=== PATIENT | female | born 1945 | race Caucasian/White ===

== ENCOUNTER 2022-02-27 21:28 | Emergency (ER) | payer MEDICARE ==
--- NOTE | 2022-02-27 21:32 | ERPHSYRPT ---
- History of Present Illness Time Seen by Provider: 02/27/22 21:32 Historian: patient Exam Limitations: no limitations Physician History: This is a 76 y/o white female pt of dr. hernandez who presents with cp. it is central substernal pressure and nonradiating. she has associated sbp over 200 and a headache. pt states she is on several medications for high bp and she has taken them all for today. she has also felt a few palpitations today. pt is under a lot of stress she states. pts grain inspector is dr. castellanos and she has a pain specialist, dr. arita. she is not sob. she denies n/v/d. she does not have abd pain. Timing/Duration: today Quality: pressure Chest Pain Radiation: no radiation Severity of Pain-Max: moderate Severity of Pain-Current: mild Associated Symptoms: denies symptoms, No abdominal pain, No shortness of breath Nitro Today/Relief: no nitro taken today Aspirin Treatment Today: no aspirin today, provided by ED Allergies/Adverse Reactions: shellfish derived Allergy (Intermediate, Verified 02/28/22 00:32) Hives Sulfa (Sulfonamide Antibiotics) Allergy (Intermediate, Verified 02/27/22 22:16) Hives Home Medications: Amlodipine Besylate 5 mg [Norvasc 5 mg] 5 mg PO BID 02/27/22 [History] Chlorthalidone 25 mg PO DAILY 02/27/22 [History] HydrALAzine HCL 25 MG TAB [Apresoline 25 MG TABLET] 25 mg PO TID 02/27/22 [History] Lisinopril 20 mg [Zestril 20 MG] 40 mg PO DAILY 02/27/22 [History] Metoprolol Succinate 50 mg [Toprol Xl 50 MG] 50 mg PO BID 02/27/22 [Hist ory] Zolpidem Tartrate 10 mg [Ambien 10 MG] 10 mg PO HS 02/27/22 [History] Travel Risk - International Travel Have you traveled outside of the country in past 3 weeks: No - Coronavirus Screening Are you exhibiting any of the following symptoms?: No Close contact with a COVID-19 positive Pt in past 14-21 Days: No - Review of Systems Constitutional: No Symptoms Eyes: No Symptoms Ears, Nose, & Throat: No Symptoms Respiratory: No Symptoms Cardiac: Chest Pain, Palpitations Abdominal/Gastrointestinal: No Symptoms Genitourinary Symptoms: No Symptoms Musculoskeletal: No Symptoms Skin: No Symptoms Neurological: Headache Psychological: No Symptoms Endocrine: No Symptoms Hematologic/Lymphatic: No Symptoms Immunological/Allergic: No Symptoms All Other Systems: Reviewed and Negative - Past Medical History Pertinent Past Medical History: Yes - Past Surgical History Past Surgical History: Yes - Nursing Vital Signs Nursing Vital Signs: Initial Vital Signs Temperature 98.5 F 02/27/22 21:30 Pulse Rate 109 H 02/27/22 21:30 Respiratory Rate 18 02/27/22 21:30 Blood Pressure 208/89 02/27/22 21:30 O2 Sat by Pulse Oximetry 96 02/27/22 21:30 Pain Scale Pain Intensity 0 - Physical Exam General Appearance: no apparent distress, alert, anxiety Eye Exam: PERRL/EOMI, eyes nml inspection Ears, Nose, Throat Exam: normal ENT inspection, moist mucous membranes Neck Exam: normal inspection, non-tender, supple, full range of motion Respiratory Exam: normal breath sounds, chest tenderness, lungs clear, airway intact, No respiratory distress Cardiovascular Exam: tachycardia Gastrointestinal/Abdomen Exam: soft, normal bowel sounds, No tenderness Pelvic Exam: not done Rectal Exam: not done Extremity Exam: normal inspection, normal range of motion, pelvis stable Neurologic Exam: alert, oriented x 3, cooperative, certified tumor registrar II-XII nml as tested, normal mood/affect, nml cerebellar function, nml station & gait, sensation nml Skin Exam: normal color, warm, dry Lymphatic Exam: No adenopathy SpO2 Interpretation: normal O2 Delivery: Room Air - Course Nursing assessment & vital signs reviewed: Yes EKG Interpreted by Me: RATE ([id number]), Sinus Tach, NORMAL AXIS, NORMAL INTERVALS, NORMAL QRS, NORMAL ST-T, Other (no acute ischemia. no comparison ekg) Ordered Tests: Active Orders 24 hr Category Date Time Status Slab Installer STAT Care 02/27/22 22:01 Active EKG-ER Only STAT Care 02/27/22 22:01 Active IV Insertion STAT Care 02/27/22 22:01 Active Pulse Oximetry (ED) STAT Care 02/27/22 22:01 Active CHEST 1 VIEW (PORTABLE) Stat Exams 02/27/22 22:01 Taken HEAD WITHOUT CONTRAST [CT] Stat Exams 02/27/22 22:02 Taken CBC W DIFF Stat Lab 02/27/22 22:06 Completed CMP Stat Lab 02/27/22 22:06 Completed D-DIMER QUANTITATIVE Stat Lab 02/27/22 22:06 Completed NT PRO BNP Stat Lab 02/27/22 22:06 Completed TROPONIN Q3H Lab 02/27/22 22:06 Completed TROPONIN Q3H Lab 02/28/22 01:15 Ordered TROPONIN Q3H Lab 02/28/22 04:15 Ordered TROPONIN Q3H Lab 02/28/22 07:15 Ordered TROPONIN Q3H Lab 02/28/22 10:15 Ordered Medication Summary Discontinued Medications Generic Name Dose Route Start Last Admin Trade Name Freq PRN Reason Stop Dose Admin Sodium Chloride 500 mls @ 500 mls/hr 02/27/22 23:52 02/28/22 00:49 Sodium Chloride 0.9% 500 Ml IV 02/28/22 00:51 Not Given .Q1H ONE Lorazepam 1 mg 02/27/22 23:53 02/28/22 00:49 Lorazepam 2 Mg/1 Ml 2 Mg Vial IV 02/27/22 23:54 Not Given STAT ONE Metoprolol Tartrate 5 mg 02/27/22 22:01 02/27/22 22:21 Metoprolol Tartrate 5 Mg/5 Ml Injection IV 02/27/22 22:02 5 mg STAT ONE Administration Metoprolol Tartrate Confirm 02/27/22 22:11 Metoprolol Tartrate 5 Mg/5 Ml Injection Administered 02/27/22 22:12 Dose 5 mg IV .STK-MED ONE Morphine Sulfate 4 mg 02/27/22 22:02 02/27/22 22:17 Morphine Sulfate 4 Mg/Ml Injection IV 02/27/22 22:03 4 mg STAT ONE Administration Morphine Sulfate Confirm 02/27/22 22:12 Morphine Sulfate 4 Mg/Ml Injection Administered 02/27/22 22:13 Dose 4 mg .ROUTE .STK-MED ONE Ondansetron HCl 4 mg 02/27/22 22:01 02/27/22 22:15 Ondansetron Hcl 4 Mg/2 Ml Vial IV 02/27/22 22:02 4 mg STAT ONE Administration Ondansetron HCl 4 mg 02/27/22 22:02 02/27/22 22:17 Ondansetron Hcl 4 Mg/2 Ml Vial IV 02/27/22 22:03 Not Given STAT ONE Ondansetron HCl Confirm 02/27/22 22:11 Ondansetron Hcl 4 Mg/2 Ml Vial Administered 02/27/22 22:12 Dose 4 mg .ROUTE .STK-MED ONE Lab/Rad Data: Laboratory Result Diagrams 02/27/22 22:06 02/27/22 22:06 Laboratory Results 02/27/22 02/27/22 02/27/22 Range/Units 22:15 22:06 22:06 WBC (4.0-10.5) K/mm3 RBC (4.1-5.4) M/mm3 Hgb (12.0-16.0) gm/dl Hct (35-47) % MCV (78-100) fl MCH (26-32) pg MCHC (32-36) g/dl RDW (11.5-14.0) % Plt Count (150-450) K/mm3 MPV (7.5-11.0) fl Gran % (36.0-66.0) % Eos # (Auto) (0-0.5) Absolute Lymphs (auto) (1.0-4.6) Absolute Monos (auto) (0.0-1.3) Lymphocytes % (24.0-44.0) % Monocytes % (0.0-12.0) % Eosinophils % (0.00-5.0) % Basophils % (0.0-0.4) % Absolute Granulocytes (1.4-6.9) Basophils # (0-0.4) D-Dimer 638 H* (215-500) ng/mL Sodium (137-145) mmol/L Potassium (3.5-5.1) mmol/L Chloride (98-107) mmol/L Carbon Dioxide (22-30) mmol/L Anion Gap (5-15) MEQ/L BUN (7-17) mg/dL Creatinine (0.52-1.04) mg/dL Estimated GFR ML/MIN Glucose (74-106) mg/dL Calcium (8.4-10.2) mg/dL Total Bilirubin (0.2-1.3) mg/dL AST (14-36) U/L ALT (0-35) U/L Alkaline Phosphatase (38-126) U/L Troponin I < 0.012 (0.000-0.034) ng/mL NT-Pro-B Natriuret Pep (0-900) pg/mL Serum Total Protein (6.3-8.2) g/dL Albumin (3.5-5.0) g/dL Urinalys Dipstick Clnc MAIN LAB Urine Color YELLOW (YELLOW) Urine Appearance CLEAR (CLEAR) Urine pH 6.5 (5-6) Ur Specific [place] 1.020 (1.005-1.025) POC Urine Protein Conf NEGATIVE (Negative) Urine Ketones NEGATIVE (NEGATIVE) Urine Nitrite NEGATIVE (NEGATIVE) Urine Bilirubin NEGATIVE (NEGATIVE) Urine Urobilinogen 0.2 (0-1) mg/dL Urine Leukocytes NEGATIVE (NEGATIVE) Urine WBC (Auto) 0-2 (0-5) /HPF Urine RBC (Auto) NONE (0-2) /HPF U Epithel Cells (Auto) NONE (FEW) /HPF Urine Bacteria (Auto) NONE (NEGATIVE) /HPF Urine RBC NEGATIVE (0-5) Edmundo/ul Ur Culture Indicated? NO Urine Glucose 100 (NEGATIVE) mg/dL Slides for Path Review 02/27/22 02/27/22 Range/Units 22:06 22:06 WBC 12.2 H (4.0-10.5) K/mm3 RBC 4.69 (4.1-5.4) M/mm3 Hgb 13.3 (12.0-16.0) gm/dl Hct 40.6 (35-47) % MCV 86.6 (78-100) fl MCH 28.4 (26-32) pg MCHC 32.8 (32-36) g/dl RDW 15.0 H (11.5-14.0) % Plt Count 309 (150-450) K/mm3 MPV 10.3 (7.5-11.0) fl Gran % 37.6 (36.0-66.0) % Eos # (Auto) 0.30 (0-0.5) Absolute Lymphs (auto) 6.27 H (1.0-4.6) Absolute Monos (auto) 1.04 (0.0-1.3) Lymphocytes % 51.2 H (24.0-44.0) % Monocytes % 8.5 (0.0-12.0) % Eosinophils % 2.5 (0.00-5.0) % Basophils % 0.2 (0.0-0.4) % Absolute Granulocytes 4.61 (1.4-6.9) Basophils # 0.02 (0-0.4) D-Dimer (215-500) ng/mL Sodium 138 (137-145) mmol/L Potassium 4.1 (3.5-5.1) mmol/L Chloride 97 L (98-107) mmol/L Carbon Dioxide 25 (22-30) mmol/L Anion Gap 19.5 H (5-15) MEQ/L BUN 39 H (7-17) mg/dL Creatinine 1.10 H (0.52-1.04) mg/dL Estimated GFR 51.6 ML/MIN Glucose 236 H (74-106) mg/dL Calcium 10.3 H (8.4-10.2) mg/dL Total Bilirubin 0.50 (0.2-1.3) mg/dL AST 28 (14-36) U/L ALT 21 (0-35) U/L Alkaline Phosphatase 62 (38-126) U/L Troponin I (0.000-0.034) ng/mL NT-Pro-B Natriuret Pep 130 (0-900) pg/mL Serum Total Protein 8.0 (6.3-8.2) g/dL Albumin 4.7 (3.5-5.0) g/dL Urinalys Dipstick Clnc Urine Color (YELLOW) Urine Appearance (CLEAR) Urine pH (5-6) Ur Specific [place] (1.005-1.025) POC Urine Protein Conf (Negative) Urine Ketones (NEGATIVE) Urine Nitrite (NEGATIVE) Urine Bilirubin (NEGATIVE) Urine Urobilinogen (0-1) mg/dL Urine Leukocytes (NEGATIVE) Urine WBC (Auto) (0-5) /HPF Urine RBC (Auto) (0-2) /HPF U Epithel Cells (Auto) (FEW) /HPF Urine Bacteria (Auto) (NEGATIVE) /HPF Urine RBC (0-5) Edmundo/ul Ur Culture Indicated? Urine Glucose (NEGATIVE) mg/dL Slides for Path Review YES - Progress Progress: improved, re-examined Air Movement: good Progress Note: 02/27/22 23:53 ct head without contrast no acute intracranial abnormality 02/28/22 00:38 medical decision making: pt states she has not cp. she is refusing cta chest. she has an allergy to shellfish. risks, benefits and alternatives d/w pt and . pt refuses cta chest. she will sign test refusal. pt feels her sx are stress related. she has had multiple family members dx with cancers and sig changes in there health and she is very upset about those issues. Blood Culture(s) Obtained: No Antibiotics given: No Counseled pt/family regarding: lab results, diagnosis, need for follow-up, rad results - Departure Departure Disposition: Home Clinical Impression: Non-cardiac chest pain, HTN (hypertension) Condition: Stable Critical Care Time: No Referrals: ALL HERNANDEZ [Primary Care Provider] - Follow up/PCP as directed Additional Instructions: continue your medications as prescribed. call your primary doctor and grain inspector today to make a follow up appointment for further evaluation and management. return to emergency room if symptoms recur
[2022-02-27] MEDS ORDERED: LOPRESSOR 5 MG/5 ML INJECTION IV ONE ×2 (22:01→22:11)
[2022-02-27] MEDS ORDERED: Zofran 4 MG/2 ML VIAL IV ONE ×2 (22:01→22:02)
[2022-02-27] MEDS ORDERED: MORPHINE SULFATE 4 MG INJ IV ONE (22:02)
[2022-02-27 22:09] LABS: Absolute Neutrophil Ct (ANC) 4.61 (1.4-6.9); Basophil (Absolute #) 0.02 (0-0.4); Eosinophil % 2.5 % (0.00-5.0); Hematocrit 40.6 % (35-47); Hemoglobin 13.3 gm/dl (12.0-16.0); Lymphocyte (Absolute #) 6.27 (1.0-4.6); Lymphocytes % 51.2 % (24.0-44.0); Mean Cell Volume 86.6 fl (78-100); Mean Corpuscular Hemoglobin 28.4 pg (26-32); Mean Corpuscular Hgb Concent. 32.8 g/dl (32-36); Mean Platelet Volume 10.3 fl (7.5-11.0); Monocyte (Absolute #) 1.04 (0.0-1.3); Monocytes % 8.5 % (0.0-12.0); Neutrophil % 37.6 % (36.0-66.0); Platelet Count 309 K/mm3 (150-450); Red Blood Count 4.69 M/mm3 (4.1-5.4); White Blood Count 12.2 K/mm3 (4.0-10.5)
[2022-02-27] MEDS ORDERED: Zofran 4 MG/2 ML VIAL ONE (22:11)
[2022-02-27] MEDS ORDERED: MORPHINE SULFATE 4 MG INJ ONE (22:12)
[2022-02-27 22:26] LABS: ALBUMIN 4.7 g/dL (3.5-5.0); ANION GAP 19.5 MEQ/L (5-15); BILIRUBIN,TOTAL 0.5 mg/dL (0.2-1.3); Calcium 10.3 mg/dL (8.4-10.2); Creatinine 1 1.1 mg/dL (0.52-1.04); EST GLOMERULAR FILTRATION RATE 51.6 ML/MIN; Potassium 4.1 mmol/L (3.5-5.1)
[2022-02-27 23:28] LABS: WBC 0-2 /HPF (0-5)
[2022-02-27 23:29] LABS: Appearance CLEAR (CLEAR); Bilirubin NEGATIVE (NEGATIVE); Dipstick done @ ? MAIN LAB; Glucose 100 mg/dL (NEGATIVE); Ketones NEGATIVE (NEGATIVE); Nitrite NEGATIVE (NEGATIVE); Ph 6.5 (5-6); Protein,Urine Dip NEGATIVE (Negative); RBC NEGATIVE Ery/ul (0-5); Urobilinogen 0.2 mg/dL (0-1)
[2022-02-27 23:30] LABS: Urine Cultured Indicated? NO
[2022-02-27 23:37] LABS: Slide Review 1 YES
[2022-02-27] MEDS ORDERED: Sodium Chloride 0.9% 500 ML 500 ML IV ONE (23:52)
[2022-02-27] MEDS ORDERED: Ativan 2 MG/1 ML VIAL IV ONE (23:53)
[2022-02-28 02:07] VITALS: O2SAT 95
[2022-02-28 04:31] VITALS: BP 160/74; PULSE 78
--- NOTE | 2022-02-28 08:45 | XRAY ---
Indication: Headache. Hypertension. Multiple contiguous axial images obtained through the head without contrast. Comparison: None. Normal appearing brain parenchyma, ventricles, and bony calvarium for patient's age. Visualized paranasal sinuses and mastoid air cells are clear. Impression: Normal CT head without contrast exam. Comment: Preliminary interpretation made by [facility]. No critical discrepancy.
--- NOTE | 2022-02-28 08:45 | XRAY ---
Indication: Chest pain. Comparison: January 27, 2009 Portable chest demonstrates minimal bibasilar subsegmental atelectasis/scarring, unchanged on right and new on left. Remaining heart and lungs unremarkable. Bony thorax intact with mild osteopenia and degenerative changes.
== END 2022-02-28 04:43 | disposition left against medical advice (07) ==
LOC: ED 21:28
DX: R07.89 Other chest pain (principal); I10 Essential (primary) hypertension; R51.9 Headache, unspecified; Z79.899 Other long term (current) drug therapy
CPT/HCPCS: 36000; 36415; 70450; 71045; 80053; 81015; 83880; 84484; 85025; 85379; 93005; 93041; 94760; 96374; 96375; 99285; J2270; J2405

== ENCOUNTER 2022-08-01 10:58 | Day surgery (SDC) | payer MEDICARE ==
--- NOTE | 2022-08-01 08:29 | HP ---
AMENDED REPORT: DATE OF SURGERY: 08/01/2022 HISTORY OF PRESENT ILLNESS: The patient is a 77-year-old who since February had lesion of indeterminate behavior, neck anterior and mid neck. 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 The patient desires excision for definitive path and treatment. PAST MEDICAL HISTORY: Hypertension. She had cancer in the past. Tumor of the ovary. Hyperlipidemia. Anxiety. Arthritis. PAST SURGICAL HISTORY: Two sections. Hysterectomy. Orthopedic surgery in the past. 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 MEDICATIONS: Hydralazine, lisinopril, amlodipine, Pravastatin, metoprolol, sumatriptan in the past, hydrocodone in the past. Zolpidem, fluconazole nasal spray and Augmentin in the past. Ibuprofen PRN in the past. ALLERGIES: SULFA. YELLOW DYE. SHELLFISH. FAMILY HISTORY: Negative in regards to this problem. SOCIAL HISTORY: No alcohol abuse. REVIEW OF SYSTEMS: Fourteen systems reviewed. Negative or noncontributory as above and per preadmission questionnaire. PHYSICAL EXAMINATION: GENERAL: No acute distress. HEENT: Sclerae nonicteric. NECK: No JVD. CHEST: Equal excursion, nonlabored breathing. CVS: Regular rate and rhythm. ABDOMEN: Soft. No peritoneal signs. EXTREMITIES: No significant edema. NEURO: Alert, oriented, moving extremities symmetrically. PSYCH: Appropriate mood and affect. IMPRESSION: Lesions of indeterminate behavior x2 on the left mid neck. I feel she would benefit from excisional biopsy of neck lesion of indeterminate behavior needs excision. Risks and benefits explained in detail but not limited to risk of bleeding or infection, risk of wound dehiscence, risk of involved margins should there be malignancy possibly requiring other procedures, general risk of anesthesia or sedation but not limited to, consent obtained. Will proceed with excisional biopsy of neck lesions x2 of indeterminate behavior.
[~2022-08-01 10:58] MED LIST: Sensorcaine 0.25% 10 ML ONE
[2022-08-01] MEDS ORDERED: Lactated Ringers 1,000 ML IV SCH (11:30)
[2022-08-01] MEDS ORDERED: Lactated Ringers 1,000 ML IV ONE (11:38)
[2022-08-01] MEDS ORDERED: Pre-Attached Lta Kit TP ONE (13:58)
[2022-08-01] MEDS ORDERED: DIPRIVAN 200 MG/20 ML IV ONE (14:09)
[2022-08-01] MEDS ORDERED: Zofran 4 MG/2 ML VIAL ONE (14:10)
[2022-08-01] MEDS ORDERED: Decadron 4 MG INJ ONE (14:10)
[2022-08-01] MEDS ORDERED: Xylocaine-Mpf 2% 5 Ml Vial ONE (14:10)
[2022-08-01] MEDS ORDERED: Quelicin Fliptop 200 MG/10 ML ONE (14:10)
[2022-08-01] MEDS ORDERED: SUBLIMAZE 100 MCG/2 ML ONE ×2 (14:11→15:29)
[2022-08-01] MEDS ORDERED: Ephedrine Sulfate 50 MG/ML ONE (14:33)
[2022-08-01] MEDS ORDERED: PHENYLEPHRINE HCL ONE (14:33)
[2022-08-01] MEDS ORDERED: ULTRAM 50 MG PO ONE (16:09)
[2022-08-01 16:56] VITALS: O2SAT 98
[2022-08-01 17:01] VITALS: BP 164/69; PULSE 89
--- NOTE | 2022-08-02 08:10 | OP ---
SURGERY DATE/TIME: 08/01/2022 1404 PREOPERATIVE DIAGNOSIS: Nonhealing lesion indeterminate behavior left and right neck. POSTOPERATIVE DIAGNOSIS: Nonhealing lesion indeterminate behavior left and right neck. PROCEDURES: 1) Excisional biopsy of right neck lesion of indeterminate behavior (approximately 2.3 cm with margins) with intermediate closure with local advancement flaps. 2) Excisional biopsy of left neck nonhealing lesion of indeterminate behavior (approximately 1.8 cm with margins) with intermediate closure with local advancement flaps. SURGEON: Dr. Krystian Coleman. ANESTHESIA: General. 1% lidocaine local. ESTIMATED BLOOD LOSS: Minimal. INDICATIONS: As noted above. Risks and benefits explained in detail and not limited to and consent obtained. The site had been confirmed and marked in the preoperative holding area. DESCRIPTION OF PROCEDURE AND FINDINGS: The patient is taken to the operating room. General anesthesia induced. She is prepped and draped in the usual sterile fashion. After official time out and no disagreement with planned procedure, starting first on the left side. Dissecting down to normal appearing skin. Dissection is carried down to subcutaneous tissue and passed the specimen off. It measured about 1.8 with margins, passed off for pathology. Fascia undermined on either side advanced back to the midline with interrupted 3-0 Vicryl. Skin closed with 4-0 Vicryl. Steri-Strips and sterile dressing applied. 0.25% Marcaine local had been injected around the area as well as the right side as well. Attention is then turned to the right side. In spindle-shaped fashion dissecting down to normal appearing skin, dissection carried down to normal appearing subcutaneous tissue. Passed the specimen off and measured about 2.3 cm on the right side and passed off for pathology. Flaps undermined on either side and advanced back to midline with interrupted 2-0 Vicryl. Skin closed with 4-0 Vicryl. Steri-Strips and sterile dressing applied. 0.25% Marcaine local had been injected around the area previously. The patient tolerated the procedure well. There were no immediate complications. Steri-Strips and sterile dressings applied. There were no immediate complications. Findings discussed with the family out in the waiting room.
== END 2022-08-01 16:55 | disposition home or self-care (01) ==
LOC: SDC 10:58
PROVIDERS: ATTEND Surgery
DX: C44.41 Basal cell carcinoma of skin of scalp and neck (principal); Z85.828 Personal history of other malignant neoplasm of skin
CPT/HCPCS: 99100; J0330; J1100; J2370; J2405; J2704; J3010; A9270-GY

== ENCOUNTER 2023-07-22 21:41 | Emergency (ER) | payer MEDICARE ==
--- NOTE | 2023-07-22 22:00 | ERPHSYRPT ---
- History of Present Illness Time Seen by Provider: 07/22/23 21:57 Source: patient Exam Limitations: no limitations Physician History: Patient is 78-year-old female recently got new contact lenses and she put it timber sprinkler today but when she tried to get it out before she goes to bed she could not get it out she tried for at least 2 hours without success so she came to the emergency room. She states that now her both eyes are hurting because she could not get her contact lenses out. Timing/Duration: today Associated Symptoms: denies symptoms Allergies/Adverse Reactions: shellfish derived Allergy (Intermediate, Verified 08/01/22 11:24) Hives Sulfa (Sulfonamide Antibiotics) Allergy (Intermediate, Verified 08/01/22 11:24) Hives yellow dye Allergy (Verified 08/01/22 11:24) Hives Home Medications: Amlodipine Besylate 5 mg [Norvasc 5 mg] 5 mg PO BID 02/27/22 [History] Chlorthalidone 25 mg PO DAILY 02/27/22 [History] HydrALAzine HCL 25 MG TAB [Apresoline 25 MG TABLET] 25 mg PO TID 02/27/22 [History] Lisinopril 20 mg [Zestril 20 MG] 40 mg PO DAILY 02/27/22 [History] Metoprolol Succinate 50 mg [Toprol Xl 50 MG] 50 mg PO BID 02/27/22 [History] Aspirin [Low Dose Aspirin EC] 81 mg PO DAILY 07/18/22 [History] Simvastatin 10 mg [Zocor 10MG] 10 mg PO DAILY 07/18/22 [History] Hx Tetanus, Diphtheria Vaccination/Date Given: Yes Hx Influenza Vaccination/Date Given: Yes Hx Pneumococcal Vaccination/Date Given: Yes Travel Risk - Vaccine Status Have you recieved a Covid-19 vaccination: Yes Hospice Community Liaison: Moderna - Vaccination Dates Date of 2cond Vaccination (if applicable): 2020 - Review of Systems Constitutional: No Symptoms Eyes: Eye Pain, Tearing, Foreign Body Sensation, Other (unable to get contact lens out) Ears, Nose, & Throat: No Symptoms Respiratory: No Symptoms Cardiac: No Symptoms Abdominal/Gastrointestinal: No Symptoms Genitourinary Symptoms: No Symptoms Musculoskeletal: No Symptoms Skin: No Symptoms Neurological: No Symptoms - Past Medical History Pertinent Past Medical History: Yes Neurological History: No Pertinent History ENT History: No Pertinent History Cardiac History: Hypertension Respiratory History: No Pertinent History Endocrine Medical History: No Pertinent History Musculoskeletal History: Arthritis, Degenerative Disk Disease GI Medical History: No Pertinent History History: No Pertinent History Psycho-Social History: No Pertinent History Female Reproductive Disorders: Ovarian Cancer Other Medical History: hx of ovarian cancer, hx of skin ca - Past Surgical History Past Surgical History: Yes Neuro Surgical History: No Pertinent History Cardiac: No Pertinent History Respiratory: No Pertinent History Gastrointestinal: No Pertinent History Genitourinary: No Pertinent History Musculoskeletal: Orthopedic Surgery Female Surgical History: Hysterectomy, Section Other Surgical History: skin cancers removed - Social History Smoking Status: Former smoker Exposure to second hand smoke: No Drug Use: none Patient Lives Alone: No - Physical Exam General Appearance: no apparent distress Eye Exam: PERRL/EOMI, other Ears, Nose, Throat Exam: normal ENT inspection Neck Exam: normal inspection Respiratory Exam: normal breath sounds Cardiovascular Exam: regular rate/rhythm Back Exam: normal inspection Extremity Exam: normal inspection Neurologic Exam: alert, oriented x 3 - Course Nursing assessment & vital signs reviewed: Yes - Progress Progress: improved Progress Note: 07/22/23 21:59 contact lens removed without any complications Counseled pt/family regarding: diagnosis, need for follow-up Medical Desision Making - Risk of complications Minimal Risk: Minimal risk of morbidity - Departure Departure Disposition: Home Clinical Impression: Contact lens associated with adverse incident Condition: Stable Critical Care Time: No Referrals: ALEJANDRA DUMONT [Primary Care Provider] - Follow up/PCP as directed Instructions: Foreign Body in Eye (DC) Additional Instructions: Discharge/Care Plan MARTINCARLOS MANUEL ARTHUR was seen on 07/22/23 in the Emergency Room. The patient was counseled regarding Diagnosis,Lab results, Imaging studies, need for follow up and when to return to the Emergency Room. Prescriptions given: Discharge Note I have spoken with the patient and/or caregivers. I have explained the patient's condition, diagnosis and treatment plan based on the information available to me at this time. I have answered the patient's and/or caregiver's questions and addressed any concerns. The patient and/or caregivers have as good understanding of the patient's diagnosis, condition and treatment plan as can be expected at this point. The vital signs have been stable. The patient's condition is stable and appropriate for discharge from the emergency department. The patient will pursue further outpatient evaluation with the primary care physician or other designated or consulting physician as outlined in the discharge instructions. The patient and/or caregivers are agreeable to this plan of care and follow-up instructions have been explained in detail. The patient and/or caregivers have received these instruction. The patient/and or caregivers are aware that any significant change in condition or worsening of symptoms should prompt an immediate return to this or the closest emergency department or call 911. MARTINCARLOS MANUEL ARTHUR was seen on 07/22/23 n the Emergency Room. At that time you were treated for an emergent condition, during your visit Laboratory, Radiology and/or other procedures may have been ordered. It is very important that you follow-up with your Primary Care Physician ALEJANDRA DUMONT within the next 24-48 hours to review your Emergency Room visit and the final results of testing that was ordered. Some test results such as Urine Cultures, Blood Cultures, and other cultures if ordered will not be finalized for 24-48 hours. If you do not have a Primary Care Provider please call the medical records department at [phone] ext [phone] to obtain a copy of your results or you may sign into our patient portal to obtain these results by visiting us @ [email or web address] and completing the following steps: 1. Click on the Patient Portal link 2. Click the Patient Self Enrollment Link to complete the enrollment form and entering your 3. Once the enrollment form is completed you will receive an email with a temporary ID and password at the email address you provided. 4. Next choose a user name and password. Your user name must be at least 4 characters long and your password must be at least 4 characters long. 5. Choose a security question from the list and provide your answer to the question. If you already have signed into the Health Portal you may access your Health Care Information 29/05 by the following steps: 1. Login to our website @ [email or web address] 2. Enter your original user name and password. FAQS The [facility] Health Portal is an online tool that contains your Lab Results, Radiology Reports, Visit History, Discharge Instructions and Health Summary Lab and Radiology Results will not be available for 72 hours on the portal. The Portal is a secure site, passwords are encryted and URLs are re-written so they cannot be copied and pasted. You and authorized family members are the only ones who can access your Portal. Also there is a timeout feature that protects your information if you leave the Portal page open. If you have technical difficulty please use the Contact Us link on the page this will allow you to submit any questions you have regarding the Portal or you may contact the Medical Record Department at [phone] ext [phone].
[2023-07-22 22:06] VITALS: RESP 20; TEMP 98.2
[2023-07-22 22:14] VITALS: BP 155/73; PULSE 68; O2SAT 99
== END 2023-07-22 22:12 | disposition home or self-care (01) ==
LOC: ED 21:41
DX: T15.02XA Foreign body in cornea, left eye, initial encounter (principal); T15.01XA Foreign body in cornea, right eye, initial encounter; H57.13 Ocular pain, bilateral; I10 Essential (primary) hypertension; Z79.899 Other long term (current) drug therapy
CPT/HCPCS: 99281

== ENCOUNTER 2023-10-09 11:30 | Day surgery (SDC) | payer MEDICARE ==
--- NOTE | 2023-10-09 09:07 | HP ---
DATE OF SURGERY: 10/09/2023 HISTORY OF PRESENT ILLNESS: The patient is a 78-year-old enlarging lesion preauricular area on the left since January. She has prior history of skin cancer. PAST MEDICAL HISTORY: Skin cancer. Ovarian cancer. Hypertension. Hyperlipidemia. PAST SURGICAL HISTORY: section. Skin cancer excision in the past. Hysterectomy. MEDICATIONS: Metoprolol, simvastatin, hydralazine, amlodipine, hydrochlorothiazide, lisinopril, aspirin. ALLERGIES: SULFA. SHELLFISH. YELLOW DYE. FAMILY HISTORY: Negative in regards to this problem. SOCIAL HISTORY: No smoking or alcohol abuse. REVIEW OF SYSTEMS: Twelve systems reviewed. No chest pain or palpitations. Other systems negative or noncontributory as above and per preadmission questionnaire. PHYSICAL EXAMINATION: Height 5'5". BMI 33.2. GENERAL: No acute distress. HEENT: Sclerae nonicteric. EOMI. Oral mucous membranes moist. Skin left preauricular area nonhealing lesion suspicious for carcinoma. NECK: No JVD. CHEST: Equal excursion, nonlabored breathing. CVS: Regular rate and rhythm. ABDOMEN: Soft. No peritoneal signs. EXTREMITIES: No significant edema. NEURO: Alert, oriented, moving extremities symmetrically. RECTAL: Deferred timed to endoscopy exam. PSYCH: Appropriate mood and affect. SKIN: Dry. IMPRESSION: Nonhealing lesion left preauricualar area. I recommend excision. Risk and benefits explained in detail including but not limited to bleeding or infection, risk of hematoma, aches and pains, risk of burning or numbness, risk of eyelid dysfunction, chewing dysfunction or droop lip but not limited to possibly transient or mcc. Risk of scar formation. Risk of involved margins possibly requiring other procedures. Will proceed with excisional biopsy of left preauricular area lesion of indeterminate behavior. Otherwise continue medications for hypertension and hyperlipidemia.
[2023-10-09] MEDS ORDERED: Sensorcaine 0.25% 10 ML ONE (11:41)
[2023-10-09] MEDS ORDERED: Lactated Ringers 1,000 ML IV ONE ×2 (12:00→13:15)
[2023-10-09] MEDS: Lactated Ringers 1,000 ML IV SCH (12:01)
[2023-10-09] MEDS ORDERED: BRIDION 200MG/2ML IV ONE (12:58)
[2023-10-09] MEDS ORDERED: Zemuron 100 MG/10 ML ONE (12:58)
[2023-10-09] MEDS ORDERED: Zofran 4 MG/2 ML VIAL ONE (12:58)
[2023-10-09] MEDS ORDERED: DIPRIVAN 200 MG/20 ML IV ONE (12:58)
[2023-10-09] MEDS ORDERED: TORAdol 30 mg Injection ONE (12:58)
[2023-10-09] MEDS ORDERED: Xylocaine-Mpf 2% 5 Ml Vial ONE (12:58)
[2023-10-09] MEDS ORDERED: SUBLIMAZE 100 MCG/2 ML ONE ×2 (12:58→13:59)
[2023-10-09] MEDS ORDERED: Decadron 4 MG INJ ONE (12:58)
[2023-10-09] MEDS ORDERED: PHENYLEPHRINE HCL ONE (13:19)
[2023-10-09] MEDS ORDERED: KEFZOL 1 GM ONE ×2 (13:23)
[2023-10-09] MEDS ORDERED: Triple Antibiotic Ointment ONE (13:37)
[2023-10-09] MEDS ORDERED: Hydromorphone 1 mg/ml Injection ONE (13:59)
[2023-10-09 14:41] VITALS: BP 128/75; PULSE 68; RESP 16; O2SAT 92
[2023-10-09 15:01] VITALS: TEMP 98.4
--- NOTE | 2023-10-10 07:58 | OP ---
SURGERY DATE/TIME: 10/09/2023 1258 PREOPERATIVE DIAGNOSIS: Prior history of skin cancer, history of nonhealing lesion left anterior and preauricular area. POSTOPERATIVE DIAGNOSIS: Prior history of skin cancer, history of nonhealing lesion left anterior and preauricular area. PROCEDURE: Excisional biopsy left ear/preauricular area nonhealing lesion with intermediate closure with local advancement flaps (2.5 cm with margins). SURGEON: Dr. Krystian Coleman. ANESTHESIA: General. ESTIMATED BLOOD LOSS: Minimal. INDICATIONS: As noted above. Risks and benefits explained in detail but not limited to and consent obtained. The site is confirmed and marked in the preoperative holding area. DESCRIPTION OF PROCEDURE AND FINDINGS: She is taken to the operating room. General anesthesia induced, prepped and draped in the usual sterile fashion. After official time out and no disagreement with planned procedure, marking out to normal appearing skin on either side of this, this required coming anterior on the ear area and preauricular area. Dissection is carried down deep into this in a spindle-shaped excision pattern approximately 4.5 cm long. The lesion itself with the margins is about 2.5 cm. Dissection is carried in subcutaneous plane beneath and passed off. Flaps are undermined on either side and then advanced back to the midline with interrupted 4-0 Vicryl closing the deep superficial subcu. Skin closed with 4-0 Vicryl running subcuticular fashion. Steri-Strips and sterile dressing applied. 0.25% Marcaine local injected along the area. The patient tolerated the procedure well. Findings discussed with the family out in the waiting area.
== END 2023-10-09 14:57 | disposition home or self-care (01) ==
LOC: SDC 11:30
PROVIDERS: ATTEND Surgery
DX: Z08 Encounter for follow-up examination after completed treatment for malignant neoplasm (principal); Z85.828 Personal history of other malignant neoplasm of skin; C44.219 Basal cell carcinoma of skin of left ear and external auricular canal
CPT/HCPCS: 99100; J0690; J1100; J1170; J1885; J2371; J2405; J2704; J3010; A9270-GY

== ENCOUNTER 2024-03-31 18:43 | Emergency (ER) | payer MEDICARE ==
[2024-03-31 18:52] VITALS: TEMP 98.6
--- NOTE | 2024-03-31 19:21 | ERPHSYRPT ---
- History of Present Illness Time Seen by Provider: 03/31/24 19:21 Source: patient, family Exam Limitations: no limitations Patient Subjective Stated Complaint: pt here for headache, shakes,co bilat ear pain 2 days, worse today, states no fever, some nausea Triage Nursing Assessment: pt alert, walked in, skin w/d/p. resp easy, no cough, no drainage from ears, moves all ext well Physician History: pt her with earaches and headache but notes that alough the headache has gone on for months that she developed dizziness which sounds like dysequilibrium just the past day or so. TMs appear clear. pnarynx clear. chest clear. No N or V. Normal neuro exam except positive Rhombergs. Fundi benign. No focal deficits, visual cox intaqct. No hx trauma or blood thinners. spouse is here as independent confirming source in ER for Hx. DIscussed risks/benefits of testing and Tx including CT head , Teleneuro, ESR, C BC. CMP, UA, EKG, IV with benedryl and metaclopromide, and they wish to proceed. so these are ordered. results discussed with pt and family. No meningismus. No Carotid bruits. Hx apcs and neg cardiac w/u 2 years ago and no CP or SObreath today. No abd pain. Timing/Duration: yesterday, other (headahce for 6 months but dysequilibrium 2 days) Quality: sharpness, throbbing Head Pain Location: temporal Severity of Pain-Max: moderate Severity of Pain-Current: moderate Modifying Factors: Improves With: movement (turning moving head increases the dysequilibrium movement senssation) Associated Symptoms: dizziness Previous symptoms: no prior history, different symptoms, recently seen, recently treated Allergies/Adverse Reactions: shellfish derived Allergy (Intermediate, Verified 03/31/24 18:53) Hives Sulfa (Sulfonamide Antibiotics) Allergy (Intermediate, Verified 03/31/24 18:53) Hives yellow dye Allergy (Verified 03/31/24 18:53) Hives Home Medications: Amlodipine Besylate 5 mg [Norvasc 5 mg] 5 mg PO BID 02/27/22 [History] HydrALAzine HCL 25 MG TAB [Apresoline 25 MG TABLET] 25 mg PO TID 02/27/22 [History] Lisinopril 20 mg [Zestril 20 MG] 40 mg PO DAILY 02/27/22 [History] Metoprolol Succinate 50 mg [Toprol Xl 50 MG] 50 mg PO BID 02/27/22 [History] Aspirin [Low Dose Aspirin EC] 81 mg PO DAILY 07/18/22 [History] Simvastatin 10 mg [Zocor 10MG] 10 mg PO DAILY 07/18/22 [History] hydroCHLOROthiazide [Hydrochlorothiazide] 12.5 mg PO DAILY 09/25/23 [History] Hx Tetanus, Diphtheria Vaccination/Date Given: Yes Hx Influenza Vaccination/Date Given: Yes Hx Pneumococcal Vaccination/Date Given: Yes Immunizations Up to Date: Yes Travel Risk - International Travel Have you traveled outside of the country in past 3 weeks: No - Emerging Infectious Disease Are you exhibiting symptoms associated with any current EIDs: No - Review of Systems Constitutional: No Fever, No Chills Eyes: No Symptoms Ears, Nose, & Throat: Ear Pain Respiratory: No Cough, No Dyspnea Cardiac: No Chest Pain, No Edema, No Syncope Abdominal/Gastrointestinal: No Abdominal Pain, No Nausea, No Vomiting, No Diarrhea Genitourinary Symptoms: No Dysuria Musculoskeletal: No Back Pain, No Neck Pain Skin: No Symptoms, No Rash Neurological: Dizziness, Headache, Other (dysequilibrium unsteadiness), No Focal Weakness, No Sensory Changes Psychological: No Symptoms Endocrine: No Symptoms Hematologic/Lymphatic: No Symptoms Immunological/Allergic: No Symptoms All Other Systems: Reviewed and Negative - Past Medical History Pertinent Past Medical History: Yes Neurological History: Migraines ENT History: No Pertinent History Cardiac History: Hypertension Respiratory History: No Pertinent History Endocrine Medical History: No Pertinent History Musculoskeletal History: Arthritis, Degenerative Disk Disease GI Medical History: No Pertinent History History: No Pertinent History Psycho-Social History: No Pertinent History Female Reproductive Disorders: Ovarian Cancer Other Medical History: hx of ovarian cancer, hx of skin ca - Past Surgical History Past Surgical History: Yes Neuro Surgical History: No Pertinent History Cardiac: No Pertinent History Respiratory: No Pertinent History Gastrointestinal: No Pertinent History Genitourinary: No Pertinent History Musculoskeletal: Orthopedic Surgery Female Surgical History: Hysterectomy, Section Other Surgical History: skin cancers removed - Social History Smoking Status: Smoker, status unknown Exposure to second hand smoke: No Drug Use: none Patient Lives Alone: No - Nursing Vital Signs Nursing Vital Signs: Initial Vital Signs Temperature 98.6 F 03/31/24 18:51 Pulse Rate 81 03/31/24 18:51 Respiratory Rate 18 03/31/24 18:51 Blood Pressure 196/80 03/31/24 18:51 O2 Sat by Pulse Oximetry 98 03/31/24 18:51 Pain Scale Pain Intensity 3 - Physical Exam General Appearance: no apparent distress Eye Exam: PERRL/EOMI Ears, Nose, Throat Exam: normal ENT inspection, TMs normal, pharynx normal, moist mucous membranes Neck Exam: normal inspection, supple, full range of motion, No meningismus Respiratory Exam: normal breath sounds, lungs clear Cardiovascular Exam: regular rate/rhythm, normal heart sounds Gastrointestinal/Abdominal Exam: soft, No tenderness, No distention Back Exam: normal inspection, normal range of motion Extremity Exam: normal inspection, normal range of motion Mental Status Exam: alert, oriented x 3, cooperative boiler or engine operator Exam: normal speech, PERRL, tongue midline, No facial droop Coordination/Gait Exam: normal finger to nose, normal cerebellar function, positive Romberg's sign Motor/Sensory Exam: no motor deficit, no sensory deficit, no pronator drift DTR Exam: bicep (R): 2+, bicep (L): 2+, tricep (R): 2+, tricep (L): 2+, knee (R): 2+, knee (L): 2+, ankle (R): 2+, ankle (L): 2+ Skin Exam: normal color, warm, dry, No rash SpO2 Interpretation: normal SpO2: 98 O2 Delivery: Room Air - Course Nursing assessment & vital signs reviewed: Yes EKG Interpreted by Me: Sinus Rhythm, NORMAL AXIS, NORMAL INTERVALS, Q-wave, Non- specific ST Changes - CT Exams Head CT Interpretation: Tele-radiologist Report, No/Intracranial Hemorrhag Ordered Tests: Active Orders 24 hr Category Date Time Status EKG-ER Only STAT Care 03/31/24 19:46 Active IV Insertion STAT Care 03/31/24 19:31 Active Pulse Oximetry (ED) STAT Care 03/31/24 19:31 Active Tele-Health Consult ROUTINE Cons 03/31/24 19:35 Active HEAD WITHOUT CONTRAST [CT] Stat Exams 03/31/24 19:31 Completed CBC W DIFF Stat Lab 03/31/24 20:10 Completed CMP Stat Lab 03/31/24 20:10 Completed ESR [Erythrocyte Sedimentation Rate] Stat Lab 03/31/24 20:10 Completed Lactic Acid Urgent Lab 03/31/24 19:31 Completed UA W/RFX UR CULTURE Stat Lab 03/31/24 19:41 Completed Medication Summary Generic Name Dose Route Start Last Admin Trade Name Alok PRN Reason Stop Dose Admin Sodium Chloride 1,000 mls @ 100 mls/hr 03/31/24 19:45 03/31/24 19:55 Sodium Chloride 0.9% 1000 Ml IV 04/30/24 19:44 100 mls/hr .Q10H ANIL Administration Discontinued Medications Generic Name Dose Route Start Last Admin Trade Name Humzaq PRN Reason Stop Dose Admin Methylprednisolone Sodium 0 mg 03/31/24 19:31 03/31/24 19:59 Succinate 125 mg/ Sterile IV 03/31/24 19:32 125 mg Water 10 ml STAT ONE Administration Diphenhydramine HCl 25 mg 03/31/24 19:31 03/31/24 19:57 Diphenhydramine Hcl 50 Mg/Ml Vial IV 03/31/24 19:32 25 mg STAT ONE Administration Diphenhydramine HCl Confirm 03/31/24 19:50 Diphenhydramine Hcl 50 Mg/Ml Vial Administered 03/31/24 19:51 Dose 50 mg .ROUTE .STK-MED ONE Methylprednisolone Sodium Succinate Confirm 03/31/24 19:50 Methylprednis Sod Succ 125 Mg/2 Ml Vial Administered 03/31/24 19:51 Dose 125 mg .ROUTE .STK-MED ONE Metoclopramide HCl 10 mg 03/31/24 19:31 03/31/24 19:58 Metoclopramide Hcl 10 Mg/2 Ml Vial IV 03/31/24 19:32 10 mg STAT ONE Administration Metoclopramide HCl Confirm 03/31/24 19:50 Metoclopramide Hcl 10 Mg/2 Ml Vial Administered 03/31/24 19:51 Dose 10 mg .ROUTE .STK-MED ONE Sterile Water Confirm 03/31/24 19:49 Water For Injection,Sterile 10 Ml Vial Administered 03/31/24 19:50 Dose 10 ml IJ .STK-MED ONE Lab/Rad Data: Laboratory Result Diagrams 03/31/24 20:10 03/31/24 20:10 Laboratory Results 03/31/24 03/31/24 03/31/24 Range/Units 20:10 20:10 20:10 WBC 9.2 (4.0-10.5) x10^3/uL RBC 4.97 (4.1-5.4) x10^6/uL Hgb 13.6 (12.0-16.0) g/dL Hct 41.6 (35-47) % MCV 83.7 (78-100) fL MCH 27.4 (26-32) pg MCHC 32.7 (32-36) g/dL RDW 14.2 H (11.5-14.0) % Plt Count 283 (150-450) x10^3/uL MPV 10.1 (7.5-11.0) fL Gran % 55.9 (36.0-66.0) % Immature Gran % (Auto) 0.5 H (0.00-0.4) % Nucleat RBC Rel Count 0.0 (0.00-0.1) % Eos # (Auto) 0.15 (0-0.5) x10^3/uL Immature Gran # (Auto) 0.05 H (0.00-0.03) x10^3u/L Absolute Lymphs (auto) 3.17 (1.0-4.6) x10^3/uL Absolute Monos (auto) 0.64 (0.0-1.3) x10^3/uL Absolute Nucleated RBC 0.00 (0.00-0.01) x10^3u/L Lymphocytes % 34.6 (24.0-44.0) % Monocytes % 7.0 (0.0-12.0) % Eosinophils % 1.6 (0.00-5.0) % Basophils % 0.4 (0.0-0.4) % Absolute Granulocytes 5.11 (1.4-6.9) x10^3/uL Basophils # 0.04 (0-0.4) x10^3/uL ESR 34 H (0-20) mm/hr Sodium 139 (135-145) mmol/L Potassium 3.7 (3.5-5.1) mmol/L Chloride 103 (98-107) mmol/L Carbon Dioxide 26 (22-30) mmol/L Anion Gap 14.7 (5-15) MEQ/L BUN 27 H (7-17) mg/dL Creatinine 1.23 H (0.52-1.04) mg/dL Estimated GFR 45.5 ML/MIN Glucose 137 H (74-106) mg/dL Lactic Acid (0.4-2.0) Calcium 9.9 (8.4-10.2) mg/dL Total Bilirubin 0.50 (0.2-1.3) mg/dL AST 27 (14-36) U/L ALT 20 (0-35) U/L Alkaline Phosphatase 60 (38-126) U/L Serum Total Protein 8.9 H (6.3-8.2) g/dL Albumin 4.8 (3.5-5.0) g/dL Urine Color (Yellow) Urine Appearance (Clear) Urine pH (4.6-8.0) Ur Specific [place] (1.005-1.030) Urine Protein (Negative) Urine Glucose (UA) (Negative) mg/dL Urine Ketones (Negative) Urine Blood (Negative) Urine Nitrite (Negative) Urine Bilirubin (Negative) Urine Urobilinogen (0.2) mg/dL Ur Leukocyte Esterase (Negative) U Hyaline Cast (Auto) (0-2) /LPF Urine Microscopic RBC (0-5) /HPF Urine Microscopic WBC (0-5) /HPF Ur Epithelial Cells (None Seen) /HPF Urine Bacteria (None Seen) /HPF Urine Culture Reflexed (NO) 03/31/24 03/31/24 Range/Units 19:41 19:31 WBC (4.0-10.5) x10^3/uL RBC (4.1-5.4) x10^6/uL Hgb (12.0-16.0) g/dL Hct (35-47) % MCV (78-100) fL MCH (26-32) pg MCHC (32-36) g/dL RDW (11.5-14.0) % Plt Count (150-450) x10^3/uL MPV (7.5-11.0) fL Gran % (36.0-66.0) % Immature Gran % (Auto) (0.00-0.4) % Nucleat RBC Rel Count (0.00-0.1) % Eos # (Auto) (0-0.5) x10^3/uL Immature Gran # (Auto) (0.00-0.03) x10^3u/L Absolute Lymphs (auto) (1.0-4.6) x10^3/uL Absolute Monos (auto) (0.0-1.3) x10^3/uL Absolute Nucleated RBC (0.00-0.01) x10^3u/L Lymphocytes % (24.0-44.0) % Monocytes % (0.0-12.0) % Eosinophils % (0.00-5.0) % Basophils % (0.0-0.4) % Absolute Granulocytes (1.4-6.9) x10^3/uL Basophils # (0-0.4) x10^3/uL ESR (0-20) mm/hr Sodium (135-145) mmol/L Potassium (3.5-5.1) mmol/L Chloride (98-107) mmol/L Carbon Dioxide (22-30) mmol/L Anion Gap (5-15) MEQ/L BUN (7-17) mg/dL Creatinine (0.52-1.04) mg/dL Estimated GFR ML/MIN Glucose (74-106) mg/dL Lactic Acid 1.4 (0.4-2.0) Calcium (8.4-10.2) mg/dL Total Bilirubin (0.2-1.3) mg/dL AST (14-36) U/L ALT (0-35) U/L Alkaline Phosphatase (38-126) U/L Serum Total Protein (6.3-8.2) g/dL Albumin (3.5-5.0) g/dL Urine Color Yellow (Yellow) Urine Appearance Clear (Clear) Urine pH 7.5 (4.6-8.0) Ur Specific [place] 1.010 (1.005-1.030) Urine Protein Negative (Negative) Urine Glucose (UA) Negative (Negative) mg/dL Urine Ketones Negative (Negative) Urine Blood Negative (Negative) Urine Nitrite Negative (Negative) Urine Bilirubin Negative (Negative) Urine Urobilinogen 0.2 (0.2) mg/dL Ur Leukocyte Esterase Negative (Negative) U Hyaline Cast (Auto) NONE SEEN (0-2) /LPF Urine Microscopic RBC 0-2 (0-5) /HPF Urine Microscopic WBC 0-2 (0-5) /HPF Ur Epithelial Cells None Seen (None Seen) /HPF Urine Bacteria None Seen (None Seen) /HPF Urine Culture Reflexed NO (NO) - Progress Progress: improved, re-examined Air Movement: good Progress Note: 03/31/24 23:37 symptoms resolved on Tx. discussed in consultation with Neuro that this appears vestibular and she can f/u with her PCP for MRI for headaches and MRV. Explained to pt and family that there is a risk of progressing Neuor vasc condition undetected and they wish to choose outpt f/u here rather than transfer or further w/u somewhere else and they have the capacity to make this choice. BP improved to 140s. 03/31/24 23:48 Blood Culture(s) Obtained: No Antibiotics given: No Counseled pt/family regarding: lab results, diagnosis, need for follow-up, rad results Medical Desision Making - Independent Historian Additional History obtained from: Spouse - Discussion of managment Care discussed with:: specialist Reviewed:: Test results, Need for additional workup Agreed on:: Treatment plan, need for follow-up - Diagnostic Testing Diagnostic test were ordered, analyzed, and reviewed by me: Yes Radiological Interpretation: Teleradiologist Report - Risk of complications The pt has a mod risk of morbidity or mortality based on: Need for prescription drug management The pt has a high risk of morbidity or mortality based on: Decision regarding hospitilization or escalation of hosp level of care - Departure Departure Disposition: Home Clinical Impression: headache with dysequilibrium Condition: Good Critical Care Time: No Referrals: ALEJANDRA DUMONT [Primary Care Provider] - Follow up/PCP as directed Instructions: Vertigo (a Type of Dizziness) (DC), Dizziness, Nonvertigo, (DC), Headache, Adult ED Additional Instructions: followup with your Dr to consider MRI and MRV testing as advised by the neurologist. ALso see your Dr. to arrange a Neurology referral for the chronic headaches and an ENT referral for the dysequilibrium/ imbalance. Return meantime if not improving or new symptoms since there may be additional conditions evolving undetected and need further interventions. Also see your dr for your elevated renal functions as this needs more workup.
[2024-03-31] MEDS ORDERED: Sterile H2O 10 ml IJ ONE (19:49)
[2024-03-31] MEDS ORDERED: BENADRYL 50 MG/ML ONE (19:50)
[2024-03-31] MEDS ORDERED: Reglan 10 MG/2 ML ONE (19:50)
[2024-03-31] MEDS ORDERED: solu-MEDROL ONE (19:50)
[2024-03-31] MEDS ORDERED: Sodium Chloride 0.9% 1000 ML 1,000 ML ONE (19:50)
[2024-03-31] MEDS: Sodium Chloride 0.9% 1000 ML 1,000 ML IV SCH (19:55)
[2024-03-31] MEDS: BENADRYL 50 MG/ML IV ONE (19:57)
[2024-03-31] MEDS: Reglan 10 MG/2 ML IV ONE (19:58)
[2024-03-31] MEDS: solu-MEDROL 125 MG, Sterile H2O 10 ml 10 ML IV ONE (19:59)
[2024-03-31 20:14] LABS: Absolute Neutrophil Ct (ANC) 5.11 x10^3/uL (1.4-6.9); BASOPHIL % 0.4 % (0.0-0.4); Basophil (Absolute #) 0.04 x10^3/uL (0-0.4); Eosinophil % 1.6 % (0.00-5.0); Eosinophil (Absolute #) 0.15 x10^3/uL (0-0.5); Hematocrit 41.6 % (35-47); Hemoglobin 13.6 g/dL (12.0-16.0); IMMATURE GRAN # 0.05 x10^3u/L (0.00-0.03); IMMATURE GRAN % 0.5 % (0.00-0.4); Lymphocyte (Absolute #) 3.17 x10^3/uL (1.0-4.6); Lymphocytes % 34.6 % (24.0-44.0); Mean Cell Volume 83.7 fL (78-100); Mean Corpuscular Hemoglobin 27.4 pg (26-32); Mean Corpuscular Hgb Concent. 32.7 g/dL (32-36); Mean Platelet Volume 10.1 fL (7.5-11.0); Monocyte (Absolute #) 0.64 x10^3/uL (0.0-1.3); Neutrophil % 55.9 % (36.0-66.0); Platelet Count 283 x10^3/uL (150-450); Red Blood Count 4.97 x10^6/uL (4.1-5.4); Red Cell Distribution Width 14.2 % (11.5-14.0); White Blood Count 9.2 x10^3/uL (4.0-10.5)
--- NOTE | 2024-03-31 20:18 | XRAY ---
CLINICAL HISTORY: dysequilibrium and headache COMPARISON: None. TECHNIQUE: Axial non-contrast CT scan of the brain was performed from the skull base to the high parietal region. One of the following dose reduction techniques were utilized for this exam: Automated exposure control, adjustment of the mA and/or kV according to patient size, use of iterative reconstruction. FINDINGS: The cerebral parenchyma exhibits normal attenuation. Urias-white differentiation is well preserved. The ventricular system and subarachnoid CSF spaces are unremarkable. No midline shift was seen. The brainstem and cerebellum are normal in morphology and attenuation. No fracture was seen. IMPRESSION: Unremarkable non-enhanced CT study of the brain. [facility] was called at [phone] at 8:11 PM EST, 03/31/2024 and results were verbally communicated to [place]. Electronically Signed by: Anne Iqbal MD. (03/31/2024 20:13:51 EDT)
[2024-03-31 20:24] LABS: Appearance Clear (Clear); Bacteria None Seen /HPF (None Seen); Bilirubin Negative (Negative); Blood Negative (Negative); Epithelial Cells None Seen /HPF (None Seen); Glucose, Urine Negative (Negative); Hyaline Casts NONE SEEN /LPF (0-2); Ketones Negative (Negative); Leukocyte Esterase Negative (Negative); Nitrite Negative (Negative); Ph 7.5 (4.6-8.0); Protein,Urine Dip Negative (Negative); RBC 0-2 /HPF (0-5); Urobilinogen 0.2 mg/dL (0.2); WBC 0-2 /HPF (0-5)
[2024-03-31 20:26] LABS: ADD URINE CULTURE? NO (NO)
[2024-03-31 20:31] LABS: ALBUMIN 4.8 g/dL (3.5-5.0); ANION GAP 14.7 MEQ/L (5-15); BILIRUBIN,TOTAL 0.5 mg/dL (0.2-1.3); Calcium 9.9 mg/dL (8.4-10.2); Creatinine 1 1.23 mg/dL (0.52-1.04); EST GLOMERULAR FILTRATION RATE 45.5 ML/MIN; Potassium 3.7 mmol/L (3.5-5.1); Total Protein 8.9 g/dL (6.3-8.2)
[2024-04-01 00:04] VITALS: BP 164/97; PULSE 87; RESP 16; O2SAT 96
== END 2024-04-01 00:05 | disposition home or self-care (01) ==
LOC: ED 18:43
DX: R51.9 Headache, unspecified (principal); R42 Dizziness and giddiness; H92.03 Otalgia, bilateral; I10 Essential (primary) hypertension; Z79.899 Other long term (current) drug therapy
CPT/HCPCS: 36000; 36415; 70450; 80053; 81001; 83605; 85025; 85652; 93005; 94760; 96374; 96375; 99284; J1200; J2919

== ENCOUNTER 2024-12-22 09:22 | Emergency (ER) | payer OTHER, MEDICARE ==
[2024-12-22 09:39] VITALS: TEMP 98.3
[2024-12-22 10:18] LABS: Absolute Neutrophil Ct (ANC) 4.85 x10^3/uL (1.56-6.13); BASOPHIL % 0.3 % (0.1-1.2); Basophil (Absolute #) 0.03 x10^3/uL (0.01-0.08); Eosinophil % 0.4 % (0.7-5.8); Eosinophil (Absolute #) 0.04 x10^3/uL (0.04-0.36); Hemoglobin 14.1 g/dL (11.2-15.7); IMMATURE GRAN # 0.08 x10^3u/L (0.001-0.031); IMMATURE GRAN % 0.8 % (0.001-0.429); Lymphocyte (Absolute #) 4.05 x10^3/uL (1.18-3.74); Lymphocytes % 41.7 % (19.3-51.7); Mean Cell Volume 81.2 fL (79.4-94.8); Mean Corpuscular Hemoglobin 27.3 pg (25.6-32.2); Mean Corpuscular Hgb Concent. 33.6 g/dL (32.2-35.5); Mean Platelet Volume 9.6 fL (9.4-12.3); Monocyte (Absolute #) 0.66 x10^3/uL (0.24-0.86); Monocytes % 6.8 % (4.7-12.5); Platelet Count 303 x10^3/uL (182-369); Red Blood Count 5.17 x10^6/uL (3.93-5.22); Red Cell Distribution Width 13.1 % (11.7-14.4); White Blood Count 9.7 x10^3/uL (3.98-10.04)
--- NOTE | 2024-12-22 10:21 | ERPHSYRPT ---
- History of Present Illness Time Seen by Provider: 12/22/24 10:10 Source: patient Exam Limitations: no limitations Patient Subjective Stated Complaint: pt was diagnosed Monday with the flu and an ear infection and was given tamiflu, steroid, and an antibiotic but she cont inues to feel bad and is getting weaker Triage Nursing Assessment: Pt brought to the ER by her , hypertension, rates neck pain as 6/10, pulses normal, skin n/w/d, reports drinking and eating but she doesn't have any energy, no difficulties breathing, denies chest pain, wheezing on the right Physician History: 79-year-old female history of hypertension presents to our ED her for evaluation of progressive generalized weakness. Patient feels "I do not have any energy" patient was diagnosed with influenza A on Monday, 6 days ago. She was also diagnosed with an ear infection. Patient was treated with Tamiflu oral steroids and antibiotics. Patient states in spite of her treatment she continues to feel worse. Patient reports a frontal headache and a productive cough. Mild associated diarrhea. RN reports neck pain but patient denies neck pain. No photophobia. No nuchal rigidity no meningeal signs. No associated chest pain. No shortness of breath. p Timing/Duration: day(s) (6 days) Severity: moderate Modifying Factors: Improves With: nothing Associated Symptoms: denies symptoms Allergies/Adverse Reactions: shellfish derived Allergy (Intermediate, Verified 12/22/24 09:40) Hives Sulfa (Sulfonamide Antibiotics) Allergy (Intermediate, Verified 12/22/24 09:40) Hives yellow dye Allergy (Verified 12/22/24 09:40) Hives Home Medications: Amlodipine Besylate 5 mg [Norvasc 5 mg] 5 mg PO BID 02/27/22 [History] Lisinopril 20 mg [Zestril 20 MG] 40 mg PO DAILY 02/27/22 [History] Metoprolol Succinate 50 mg [Toprol Xl 50 MG] 50 mg PO BID 02/27/22 [History] Chlorthalidone 25 mg PO DAILY 12/22/24 [History] hydrOXYzine HCL [Hydroxyzine HCl] 20 mg PO TID 12/22/24 [History] methocarbamoL [Methocarbamol] 750 mg PO TID 12/22/24 [History] Hx Tetanus, Diphtheria Vaccination/Date Given: Yes Hx Influenza Vaccination/Date Given: Yes Hx Pneumococcal Vaccination/Date Given: Yes Travel Risk - International Travel Have you traveled outside of the country in past 3 weeks: No - Emerging Infectious Disease Are you exhibiting symptoms associated with any current EIDs: Yes Symptoms: Cough: New Onset - Review of Systems Constitutional: No Symptoms, No Fever, No Chills Eyes: No Symptoms Ears, Nose, & Throat: No Symptoms Respiratory: No Symptoms, No Cough, No Dyspnea Cardiac: No Symptoms, No Chest Pain, No Edema, No Syncope Abdominal/Gastrointestinal: No Symptoms, No Abdominal Pain, No Nausea, No Vomiting, No Diarrhea Genitourinary Symptoms: No Symptoms, No Dysuria Musculoskeletal: No Symptoms, No Back Pain, No Neck Pain Skin: No Symptoms, No Rash Neurological: No Symptoms, No Dizziness, No Focal Weakness, No Sensory Changes Psychological: No Symptoms Endocrine: No Symptoms Hematologic/Lymphatic: No Symptoms All Other Systems: Reviewed and Negative - Past Medical History Pertinent Past Medical History: Yes Neurological History: Migraines ENT History: No Pertinent History Cardiac History: Hypertension Respiratory History: No Pertinent History Endocrine Medical History: No Pertinent History Musculoskeletal History: Arthritis, Degenerative Disk Disease GI Medical History: No Pertinent History History: No Pertinent History Psycho-Social History: No Pertinent History Female Reproductive Disorders: Ovarian Cancer Other Medical History: hx of ovarian cancer, hx of skin ca - Past Surgical History Past Surgical History: Yes Neuro Surgical History: No Pertinent History Cardiac: No Pertinent History Respiratory: No Pertinent History Gastrointestinal: No Pertinent History Genitourinary: No Pertinent History Musculoskeletal: Orthopedic Surgery Female Surgical History: Hysterectomy, Section Other Surgical History: skin cancers removed - Social History Smoking Status: Smoker, status unknown Exposure to second hand smoke: No Drug Use: none - Social Determinants of Health Will the patient participate in the screening: Yes Do you worry about a steady place to live?: No Do you have any problems with any of the following?: No known problems In the past 12 months,have you had to go without utilities?: No Transportation Issues: No Has anyone in your support network made you feel unsafe?: No Have you or anyone in your house had to go w/o enough food: No - Nursing Vital Signs Nursing Vital Signs: Initial Vital Signs Temperature 98.3 F 12/22/24 09:30 Pulse Rate 80 12/22/24 09:30 Blood Pressure 191/87 12/22/24 09:30 O2 Sat by Pulse Oximetry 94 L 12/22/24 09:30 Pain Scale Pain Intensity 6 - Physical Exam General Appearance: no apparent distress, alert Eye Exam: PERRL/EOMI, eyes nml inspection Ears, Nose, Throat Exam: normal ENT inspection, pharynx normal, moist mucous membranes Neck Exam: normal inspection, non-tender, supple, full range of motion Respiratory Exam: normal breath sounds, lungs clear, airway intact, rhonchi, wheezing (Slight wheezing right base. Slightly rhonchorous), No respiratory distress Cardiovascular Exam: regular rate/rhythm, normal heart sounds, normal peripheral pulses Gastrointestinal/Abdomen Exam: soft, normal bowel sounds, No tenderness, No mass Back Exam: normal inspection, normal range of motion, No CVA tenderness, No vertebral tenderness Extremity Exam: normal inspection, normal range of motion, pelvis stable Neurologic Exam: alert, oriented x 3, cooperative, normal mood/affect, sensation nml, No motor deficits Skin Exam: normal color, warm, dry, No rash Lymphatic Exam: No adenopathy SpO2 Interpretation: normal SpO2: 94 O2 Delivery: Room Air - Course Nursing assessment & vital signs reviewed: Yes - Radiology Exams Chest X-ray Interpretation: Teleradiologist Report (Right lower lobe patchy airspace disease, cardiomegaly) Ordered Tests: Active Orders 24 hr Category Date Time Status AMA [Release AMA] OM.NOW Care 12/22/24 14:54 Active [employer] STAT Care 12/22/24 10:08 Active IV Insertion STAT Care 12/22/24 10:07 Active Pulse Oximetry (ED) STAT Care 12/22/24 10:07 Active CHEST 1 VIEW (PORTABLE) Stat Exams 12/22/24 10:32 Completed CBC W DIFF Stat Lab 12/22/24 10:00 Completed CMP Stat Lab 12/22/24 10:00 Completed MAGNESIUM Stat Lab 12/22/24 10:00 Completed TROPONIN Q4H Lab 12/22/24 10:00 Completed TROPONIN Q4H Lab 12/22/24 14:15 Ordered TROPONIN Q4H Lab 12/22/24 18:15 Ordered UA W/RFX UR CULTURE Stat Lab 12/22/24 10:00 Completed Medication Summary Generic Name Dose Route Start Last Admin Trade Name Freq PRN Reason Stop Dose Admin Sodium Chloride 1,000 mls @ 250 mls/hr 12/22/24 10:15 12/22/24 14:38 Sodium Chloride 0.9% 1000 Ml IV 01/21/25 10:14 Infused .Q4H ANIL Infusion Discontinued Medications Generic Name Dose Route Start Last Admin Trade Name Humzaq PRN Reason Stop Dose Admin Ceftriaxone Sodium 2 gm in 100 mls @ 200 mls/hr 12/22/24 12:51 12/22/24 13:03 Rocephin 2 Gm/100 Ml Nacl IV 12/22/24 13:20 200 mls/hr STAT ONE Administration Azithromycin 500 mg in 250 mls @ 250 mls/hr 12/22/24 12:51 12/22/24 13:42 Zithromax 500 Mg/ 250 Ml Nacl Premix IV 12/22/24 13:50 250 mls/hr STAT STA Administration Ceftriaxone Sodium Confirm 12/22/24 13:01 Rocephin 2 Gm/100 Ml Nacl Administered 12/22/24 13:02 Dose 2 gm in 100 mls @ ud IV .STK-MED ONE Azithromycin Confirm 12/22/24 13:41 Zithromax 500 Mg/ 250 Ml Nacl Premix Administered 12/22/24 13:42 Dose 500 mg in 250 mls @ ud IV .STK-MED ONE Lab/Rad Data: Laboratory Result Diagrams 12/22/24 10:00 12/22/24 10:00 Laboratory Results 12/22/24 12/22/24 12/22/24 Range/Units 10:00 10:00 10:00 WBC (3.98-10.04) x10^3/uL RBC (3.93-5.22) x10^6/uL Hgb (11.2-15.7) g/dL Hct (34.1-44.9) % MCV (79.4-94.8) fL MCH (25.6-32.2) pg MCHC (32.2-35.5) g/dL RDW (11.7-14.4) % Plt Count (182-369) x10^3/uL MPV (9.4-12.3) fL Gran % (34.0-71.1) % Immature Gran % (Auto) (0.001-0.429) % Nucleat RBC Rel Count (0.00-0.2) % Eos # (Auto) (0.04-0.36) x10^3/uL Immature Gran # (Auto) (0.001-0.031) x10^3u/L Absolute Lymphs (auto) (1.18-3.74) x10^3/uL Absolute Monos (auto) (0.24-0.86) x10^3/uL Absolute Nucleated RBC (0.00-0.012) x10^3u/L Lymphocytes % (19.3-51.7) % Monocytes % (4.7-12.5) % Eosinophils % (0.7-5.8) % Basophils % (0.1-1.2) % Absolute Granulocytes (1.56-6.13) x10^3/uL Basophils # (0.01-0.08) x10^3/uL Sodium 132 L (135-145) mmol/L Potassium 4.2 (3.5-5.1) mmol/L Chloride 94 L (98-107) mmol/L Carbon Dioxide 26 (22-30) mmol/L Anion Gap 16.8 H (5-15) MEQ/L BUN 25 H (7-17) mg/dL Creatinine 0.87 (0.52-1.04) mg/dL Estimated GFR 68.6 ML/MIN Glucose 111 H (74-106) mg/dL Calcium 9.3 (8.4-10.2) mg/dL Magnesium 1.6 (1.6-2.3) mg/dL Total Bilirubin 0.80 (0.2-1.3) mg/dL AST 37 H (14-36) U/L ALT 23 (0-35) U/L Alkaline Phosphatase 66 (38-126) U/L Troponin I < 0.012 (0.000-0.033) ng/mL Serum Total Protein 8.2 (6.3-8.2) g/dL Albumin 4.8 (3.5-5.0) g/dL Urine Color Yellow (Yellow) Urine Appearance Clear (Clear) Urine pH 7.5 (4.6-8.0) Ur Specific [place] 1.020 (1.005-1.030) Urine Protein Trace A (Negative) Urine Glucose (UA) Negative (Negative) mg/dL Urine Ketones Negative (Negative) Urine Blood Negative (Negative) Urine Nitrite Negative (Negative) Urine Bilirubin Negative (Negative) Urine Urobilinogen 0.2 (0.2) mg/dL Ur Leukocyte Esterase Negative (Negative) U Hyaline Cast (Auto) NONE SEEN (0-2) /LPF Urine Microscopic RBC 0-2 (0-5) /HPF Urine Microscopic WBC 0-2 (0-5) /HPF Ur Epithelial Cells None Seen (None Seen) /HPF Urine Bacteria None Seen (None Seen) /HPF Urine Culture Reflexed NO (NO) 12/22/24 Range/Units 10:00 WBC 9.7 (3.98-10.04) x10^3/uL RBC 5.17 (3.93-5.22) x10^6/uL Hgb 14.1 (11.2-15.7) g/dL Hct 42.0 (34.1-44.9) % MCV 81.2 (79.4-94.8) fL MCH 27.3 (25.6-32.2) pg MCHC 33.6 (32.2-35.5) g/dL RDW 13.1 (11.7-14.4) % Plt Count 303 (182-369) x10^3/uL MPV 9.6 (9.4-12.3) fL Gran % 50.0 (34.0-71.1) % Immature Gran % (Auto) 0.8 H (0.001-0.429) % Nucleat RBC Rel Count 0.0 (0.00-0.2) % Eos # (Auto) 0.04 (0.04-0.36) x10^3/uL Immature Gran # (Auto) 0.08 H (0.001-0.031) x10^3u/L Absolute Lymphs (auto) 4.05 H (1.18-3.74) x10^3/uL Absolute Monos (auto) 0.66 (0.24-0.86) x10^3/uL Absolute Nucleated RBC 0.00 (0.00-0.012) x10^3u/L Lymphocytes % 41.7 (19.3-51.7) % Monocytes % 6.8 (4.7-12.5) % Eosinophils % 0.4 L (0.7-5.8) % Basophils % 0.3 (0.1-1.2) % Absolute Granulocytes 4.85 (1.56-6.13) x10^3/uL Basophils # 0.03 (0.01-0.08) x10^3/uL Sodium (135-145) mmol/L Potassium (3.5-5.1) mmol/L Chloride (98-107) mmol/L Carbon Dioxide (22-30) mmol/L Anion Gap (5-15) MEQ/L BUN (7-17) mg/dL Creatinine (0.52-1.04) mg/dL Estimated GFR ML/MIN Glucose (74-106) mg/dL Calcium (8.4-10.2) mg/dL Magnesium (1.6-2.3) mg/dL Total Bilirubin (0.2-1.3) mg/dL AST (14-36) U/L ALT (0-35) U/L Alkaline Phosphatase (38-126) U/L Troponin I (0.000-0.033) ng/mL Serum Total Protein (6.3-8.2) g/dL Albumin (3.5-5.0) g/dL Urine Color (Yellow) Urine Appearance (Clear) Urine pH (4.6-8.0) Ur Specific Eugene (1.005-1.030) Urine Protein (Negative) Urine Glucose (UA) (Negative) mg/dL Urine Ketones (Negative) Urine Blood (Negative) Urine Nitrite (Negative) Urine Bilirubin (Negative) Urine Urobilinogen (0.2) mg/dL Ur Leukocyte Esterase (Negative) U Hyaline Cast (Auto) (0-2) /LPF Urine Microscopic RBC (0-5) /HPF Urine Microscopic WBC (0-5) /HPF Ur Epithelial Cells (None Seen) /HPF Urine Bacteria (None Seen) /HPF Urine Culture Reflexed (NO) - Progress Progress Note: 12/22/24 10:17 pt was diagnosed Monday with the flu and an ear infection and was given tamiflu, steroid, and an antibiotic but she continues to feel bad and is getting weaker Physical exam reveals diminished breath sounds rhonchi and wheezing. Patient with a persistent cough. Laboratory workup reveals dehydration. IV fluids infused. Chest x-ray reveals pneumonia. Antibiotics infused. Patient ambulated throughout our ED. O2 sat dropped down to 88%. We advise hospitalization for hypoxia shortness of breath generalized wheezing and pneumonia. Patient declined. Patient states she feels much better. Patient states she prefers to go home. Patient will sign out AMA Patient is of sound mind. Patient is appropriate to make informed and independent medical decisions. Patient understands that leaving AGAINST MEDICAL ADVICE can result in delayed diagnosis, increased risk of morbidity, mortality, short and long-term disability including . In spite of these risks, patient has decided to leave AGAINST MEDICAL ADVICE. Patient understands that she may return to our ED at any point if she reconsiders. Patient agrees to follow-up with her primary care doctor within 48 hours for reevaluation. Patient voices no other complaints or concerns at this time. We will release patient AGAINST MEDICAL ADVICE per their request. Complexity of problem addressed is moderate acute complicated. No critical care time. Complex of data reviewed analyzes moderate. Test ordered test reviewed results analyzed and correlated clinically with history and physical exam. Risk of complication and or risk of morbidity/mortality of patient management is moderate. A prescription for Augmentin and azithromycin forwarded to patient's pharmacy. Vitals stable. Time spent to discharge patient is approximately 15 minutes. No social determinants of health present to impede follow-up. Portions of this note were created with voice recognition technology. There may be grammatical, spelling, punctuation or sound alike errors 12/22/24 14:58 Counseled pt/family regarding: lab results, diagnosis, need for follow-up, rad results - Departure Departure Disposition: Home Clinical Impression: Generalized weakness, Dehydration, Pneumonia Condition: Stable Critical Care Time: No Referrals: ALEJANDRA DUMONT [Primary Care Provider] - Follow up/PCP as directed Additional Instructions: Discharge/Care Plan MARTINCARLOS MANUEL SANDHYA was seen on 12/22/24 in the Emergency Room. The patient was counseled regarding Diagnosis,Lab results, Imaging studies, need for follow up and when to return to the Emergency Room. Prescriptions given: Discharge Note I have spoken with the patient and/or caregivers. I have explained the patient's condition, diagnosis and treatment plan based on the information available to me at this time. I have answered the patient's and/or caregiver's questions and addressed any concerns. The patient and/or caregivers have as good understanding of the patient's diagnosis, condition and treatment plan as can be expected at this point. The vital signs have been stable. The patient's condition is stable and appropriate for discharge from the emergency department. The patient will pursue further outpatient evaluation with the primary care physician or other designated or consulting physician as outlined in the discharge instructions. The patient and/or caregivers are agreeable to this plan of care and follow-up instructions have been explained in detail. The patient and/or caregivers have received these instruction. The patient/and or caregivers are aware that any significant change in condition or worsening of symptoms should prompt an immediate return to this or the closest emergency department or call 911. Prescriptions: Amox Tr/Potass Clav. 875 mg [Augmentin 875-125 Tablet] 875 mg PO BID 7 Days #14 tablet Azithromycin 250 mg [Zithromax 250 MG TABLET] 250 mg PO ZPACK #6 tablet
[2024-12-22 10:28] LABS: Appearance Clear (Clear); Bacteria None Seen /HPF (None Seen); Bilirubin Negative (Negative); Blood Negative (Negative); Epithelial Cells None Seen /HPF (None Seen); Glucose, Urine Negative (Negative); Hyaline Casts NONE SEEN /LPF (0-2); Ketones Negative (Negative); Leukocyte Esterase Negative (Negative); Nitrite Negative (Negative); Ph 7.5 (4.6-8.0); Protein,Urine Dip Trace (Negative); RBC 0-2 /HPF (0-5); Urobilinogen 0.2 mg/dL (0.2); WBC 0-2 /HPF (0-5)
[2024-12-22] MEDS ORDERED: Sodium Chloride 0.9% 1000 ML 1,000 ML ONE (10:28)
[2024-12-22] MEDS: Sodium Chloride 0.9% 1000 ML 1,000 ML IV SCH (10:29)
[2024-12-22 10:33] LABS: ALBUMIN 4.8 g/dL (3.5-5.0); ANION GAP 16.8 MEQ/L (5-15); BILIRUBIN,TOTAL 0.8 mg/dL (0.2-1.3); Calcium 9.3 mg/dL (8.4-10.2); Creatinine 1 0.87 mg/dL (0.52-1.04); EST GLOMERULAR FILTRATION RATE 68.6 ML/MIN; MAGNESIUM 1.6 mg/dL (1.6-2.3); Potassium 4.2 mmol/L (3.5-5.1); Total Protein 8.2 g/dL (6.3-8.2)
--- NOTE | 2024-12-22 12:37 | XRAY ---
CLINICAL HISTORY: cough COMPARISON: 02/27/2022 CR. TECHNIQUE: X-ray images of the chest were obtained in anteroposterior (AP) projection. FINDINGS: Pulmonary Parenchyma: Hyperinflated lung cox are seen bilaterally suggestive of COPD. Newly seen patchy air space shadowing/ possible infiltrates in the right lower lung zone with atelectasis. Bilateral hilar vascular congestion is seen. Otherwise, no evidence of consolidation or collapse. No pulmonary nodules are identified. No evidence of pleural effusion or pleural thickening. Heart and Mediastinum: Cardiomegaly with unfolding of the aorta is seen. No mediastinal widening or masses. No hilar or mediastinal lymphadenopathy. Bony Thorax: The bony thorax appears intact without fractures or deformities. An unchanged old right 7th rib fracture si seen. Soft Tissues: Soft tissues overlying the chest wall are unremarkable. IMPRESSION: Hyperinflated lung ocx are again seen bilaterally suggestive of COPD. Newly seen patchy air space shadowing/ possible infiltrates in the right lower lung zone with atelectasis. Follow-up is suggested. Bilateral hilar vascular congestion is again seen. Cardiomegaly with unfolding of the aorta is again seen. Electronically Signed by: Anne Iqbal MD. (12/22/2024 12:33:59 EST)
[2024-12-22] MEDS ORDERED: ROCEPHIN 2 GM/100 ML NACL 2 GM/100 ML IVPB IV ONE (13:01)
[2024-12-22] MEDS: ROCEPHIN 2 GM/100 ML NACL 2 GM/100 ML IVPB IV ONE (13:03)
[2024-12-22] MEDS ORDERED: Zithromax 500 MG/ 250 ML NaCl Premix 500 MG/250 ML IVPB IV ONE (13:41)
[2024-12-22] MEDS: Zithromax 500 MG/ 250 ML NaCl Premix 500 MG/250 ML IVPB IV STA (13:42)
[2024-12-22 14:28] VITALS: O2SAT 94
[2024-12-22 15:03] VITALS: BP 141/63; PULSE 85; RESP 18
== END 2024-12-22 15:05 | disposition left against medical advice (07) ==
LOC: ED 09:22
DX: J18.9 Pneumonia, unspecified organism (principal); R53.1 Weakness; E86.0 Dehydration; R51.9 Headache, unspecified; R05.9 Cough, unspecified; I10 Essential (primary) hypertension; Z79.899 Other long term (current) drug therapy
CPT/HCPCS: 36415; 71045; 80053; 81001; 83735; 84484; 85025; 93041; 94760; 96361; 96374; 96375; 99284; J0456; J0696

== ENCOUNTER 2024-12-25 10:43 | Emergency (ER) | payer OTHER, MEDICARE ==
--- NOTE | 2024-12-25 10:59 | ERPHSYRPT ---
- History of Present Illness Time Seen by Provider: 12/25/24 10:59 Historian: patient, family Exam Limitations: no limitations Physician History: This is a 79-year-old white female patient of Dr. Adames who presents by private vehicle accompanied by her spouse for symptoms of persistent diarrhea and weakness. Approximately 1 week ago, per patient report, she had tested positive for influenza A. She also was diagnosed with an ear infection was placed on antibiotics. She then had bodyaches and a cough and presented to the emergency department here at [facility] and I reviewed that 216 2024 visit report she was diagnosed with pneumonia. Despite having mild weakness, mild diarrhea and pneumonia as well as recommending the patient be hospitalized, the patient signed out AGAINST MEDICAL ADVICE. In the last several days she has been more weak and the diarrhea has worsened and persisted. She feels that she may be dehydrated. Patient does not have chest pain. She had a normal troponin level and a nonemergent/nonacute twelve-lead EKG on 12/22/2024. She denies shortness of breath. I reviewed outpatient lab results as well. On 12/24/2024 patient's stool specimen tested negative for C. difficile toxin. Patient does have a history of hypertension. Timing/Duration: day(s) (3), worse Abdominal Pain Onset Location: generalized abdomen Pain Radiation: no radiation Severity of Pain-Max: mild Severity of Pain-Current: mild Associated Symptoms: diarrhea, weakness, No chest pain, No shortness of breath, No syncope, No vomiting Previous symptoms: same symptoms as today, recently seen, recently treated Allergies/Adverse Reactions: shellfish derived Allergy (Intermediate, Verified 12/22/24 09:40) Hives Sulfa (Sulfonamide Antibiotics) Allergy (Intermediate, Verified 12/22/24 09:40) Hives yellow dye Allergy (Verified 12/22/24 09:40) Hives Home Medications: Amlodipine Besylate 5 mg [Norvasc 5 mg] 5 mg PO BID 02/27/22 [History] Lisinopril 20 mg [Zestril 20 MG] 40 mg PO DAILY 02/27/22 [History] Metoprolol Succinate 50 mg [Toprol Xl 50 MG] 50 mg PO BID 02/27/22 [History] Chlorthalidone 25 mg PO DAILY 12/22/24 [History] hydrOXYzine HCL [Hydroxyzine HCl] 20 mg PO TID 12/22/24 [History] methocarbamoL [Methocarbamol] 750 mg PO TID 12/22/24 [History] Hx Tetanus, Diphtheria Vaccination/Date Given: Yes Hx Influenza Vaccination/Date Given: Yes Hx Pneumococcal Vaccination/Date Given: Yes Travel Risk - Emerging Infectious Disease Are you exhibiting symptoms associated with any current EIDs: Yes Symptoms: Cough: New Onset - Review of Systems Constitutional: Weakness Eyes: No Symptoms Ears, Nose, & Throat: No Symptoms Respiratory: No Symptoms Cardiac: No Symptoms Abdominal/Gastrointestinal: Abdominal Pain, Diarrhea, Appetite Changes, No Nausea (Mild diffuse), No Vomiting Genitourinary Symptoms: No Symptoms Musculoskeletal: No Symptoms Skin: No Symptoms Neurological: No Symptoms Psychological: No Symptoms Endocrine: No Symptoms Hematologic/Lymphatic: No Symptoms Immunological/Allergic: No Symptoms All Other Systems: Reviewed and Negative - Past Medical History Pertinent Past Medical History: Yes Neurological History: Migraines ENT History: No Pertinent History Cardiac History: Hypertension Respiratory History: No Pertinent History Endocrine Medical History: No Pertinent History Musculoskeletal History: Arthritis, Degenerative Disk Disease GI Medical History: No Pertinent History History: No Pertinent History Psycho-Social History: No Pertinent History Female Reproductive Disorders: Ovarian Cancer Other Medical History: hx of ovarian cancer, hx of skin ca - Past Surgical History Past Surgical History: Yes Neuro Surgical History: No Pertinent History Cardiac: No Pertinent History Respiratory: No Pertinent History Gastrointestinal: No Pertinent History Genitourinary: No Pertinent History Musculoskeletal: Orthopedic Surgery Female Surgical History: Hysterectomy, Section Other Surgical History: skin cancers removed - Social History Smoking Status: Smoker, status unknown Exposure to second hand smoke: No Drug Use: none - Social Determinants of Health Will the patient participate in the screening: Yes Do you worry about a steady place to live?: No In the past 12 months,have you had to go without utilities?: No Transportation Issues: No Has anyone in your support network made you feel unsafe?: No Have you or anyone in your house had to go w/o enough food: No - Nursing Vital Signs Nursing Vital Signs: Initial Vital Signs Temperature 97.7 F 12/25/24 10:54 Pulse Rate 69 12/25/24 10:54 Respiratory Rate 20 12/25/24 10:54 Blood Pressure 186/78 12/25/24 10:54 O2 Sat by Pulse Oximetry 94 L 12/25/24 10:54 Pain Scale Pain Intensity 0 - Physical Exam General Appearance: no apparent distress, alert, anxiety Eye Exam: PERRL/EOMI, eyes nml inspection Ears, Nose, Throat Exam: normal ENT inspection, moist mucous membranes Neck Exam: normal inspection, non-tender, supple, full range of motion Respiratory Exam: normal breath sounds, lungs clear, airway intact, No chest tenderness, No respiratory distress Cardiovascular Exam: regular rate/rhythm, normal heart sounds, normal peripheral pulses Gastrointestinal/Abdomen Exam: soft, normal bowel sounds, No tenderness, No guarding Pelvic Exam: not done Rectal Exam: not done Back Exam: normal inspection, normal range of motion, No CVA tenderness, No v ertebral tenderness Extremity Exam: normal inspection, normal range of motion, pelvis stable Neurologic Exam: alert, oriented x 3, cooperative, hand striper II-XII nml as tested, sensation nml Skin Exam: normal color, warm, dry Lymphatic Exam: No adenopathy SpO2 Interpretation: borderline oxygenation O2 Delivery: Room Air - Course Nursing assessment & vital signs reviewed: Yes Ordered Tests: Active Orders 24 hr Category Date Time Status IV Insertion STAT Care 12/25/24 11:19 Completed ABDOMEN AND PELVIS W/0 CONTRAS [CT] Stat Exams 12/25/24 11:20 Completed AMYLASE Stat Lab 12/25/24 11:24 Completed BLOOD CULTURE Stat Lab 12/25/24 11:37 Received CBC W DIFF Stat Lab 12/25/24 11:24 Completed CMP Stat Lab 12/25/24 11:24 Completed LIPASE Stat Lab 12/25/24 11:24 Completed Lactic Acid Stat Lab 12/25/24 11:19 Completed MAGNESIUM Stat Lab 12/25/24 11:24 Completed MONO SCREEN Stat Lab 12/25/24 11:24 Completed UA W/RFX UR CULTURE Stat Lab 12/25/24 11:24 Completed Medication Summary Generic Name Dose Route Start Last Admin Trade Name Freq PRN Reason Stop Dose Admin Lactated Ringer's 1,000 mls @ 999 mls/hr 12/25/24 13:11 12/25/24 13:29 Lactated Ringers IV 12/25/24 14:11 999 mls/hr .Q1H1M ONE Administration Discontinued Medications Generic Name Dose Route Start Last Admin Trade Name Freq PRN Reason Stop Dose Admin Sodium Chloride 1,000 mls @ 999 mls/hr 12/25/24 11:19 12/25/24 12:50 Sodium Chloride 0.9% 1000 Ml IV 12/25/24 12:19 Infused .Q1H1M STA Infusion Sodium Chloride Confirm 12/25/24 11:39 Sodium Chloride 0.9% 1000 Ml Administered 12/25/24 11:40 Dose 1,000 mls @ ud .ROUTE .STK-MED ONE Magnesium Sulfate/Dextrose 100 mls @ 200 mls/hr 12/25/24 12:33 12/25/24 13:19 Magnesium 1 Gm / 100 Ml D5w IV 12/25/24 13:02 Infused STAT ONE Infusion Magnesium Sulfate/Dextrose Confirm 12/25/24 12:37 Magnesium 1 Gm / 100 Ml D5w Administered 12/25/24 12:38 Dose 100 mls @ ud IV .STK-MED ONE Lactated Ringer's Confirm 12/25/24 13:28 Lactated Ringers Administered 12/25/24 13:29 Dose 1,000 mls @ ud IV .STK-MED ONE Lab/Rad Data: Laboratory Result Diagrams 12/25/24 11:24 12/25/24 11:24 Laboratory Results 12/25/24 12/25/24 12/25/24 Range/Units 11:24 11:24 11:24 WBC 12.4 H (3.98-10.04) x10^3/uL RBC 5.06 (3.93-5.22) x10^6/uL Hgb 13.8 (11.2-15.7) g/dL Hct 40.4 (34.1-44.9) % MCV 79.8 (79.4-94.8) fL MCH 27.3 (25.6-32.2) pg MCHC 34.2 (32.2-35.5) g/dL RDW 13.1 (11.7-14.4) % Plt Count 373 H (182-369) x10^3/uL MPV 9.4 (9.4-12.3) fL Gran % 60.8 (34.0-71.1) % Immature Gran % (Auto) 0.7 H (0.001-0.429) % Nucleat RBC Rel Count 0.0 (0.00-0.2) % Eos # (Auto) 0.07 (0.04-0.36) x10^3/uL Immature Gran # (Auto) 0.09 H (0.001-0.031) x10^3u/L Absolute Lymphs (auto) 4.02 H (1.18-3.74) x10^3/uL Absolute Monos (auto) 0.63 (0.24-0.86) x10^3/uL Absolute Nucleated RBC 0.00 (0.00-0.012) x10^3u/L Lymphocytes % 32.5 (19.3-51.7) % Monocytes % 5.1 (4.7-12.5) % Eosinophils % 0.6 L (0.7-5.8) % Basophils % 0.3 (0.1-1.2) % Absolute Granulocytes 7.52 H (1.56-6.13) x10^3/uL Basophils # 0.04 (0.01-0.08) x10^3/uL Sodium 133 L (135-145) mmol/L Potassium 4.0 (3.5-5.1) mmol/L Chloride 96 L (98-107) mmol/L Carbon Dioxide 24 (22-30) mmol/L Anion Gap 16.5 H (5-15) MEQ/L BUN 18 H (7-17) mg/dL Creatinine 0.97 (0.52-1.04) mg/dL Estimated GFR 60.2 ML/MIN Glucose 125 H (74-106) mg/dL Lactic Acid (0.4-2.0) Calcium 9.5 (8.4-10.2) mg/dL Magnesium 1.5 L (1.6-2.3) mg/dL Total Bilirubin 0.80 (0.2-1.3) mg/dL AST 36 (14-36) U/L ALT 20 (0-35) U/L Alkaline Phosphatase 71 (38-126) U/L Serum Total Protein 8.0 (6.3-8.2) g/dL Albumin 4.7 (3.5-5.0) g/dL Amylase 76 (30-110) U/L Lipase 146 (23-300) U/L Urine Color (Yellow) Urine Appearance (Clear) Urine pH (4.6-8.0) Ur Specific Temple (1.005-1.030) Urine Protein (Negative) Urine Glucose (UA) (Negative) mg/dL Urine Ketones (Negative) Urine Blood (Negative) Urine Nitrite (Negative) Urine Bilirubin (Negative) Urine Urobilinogen (0.2) mg/dL Ur Leukocyte Esterase (Negative) U Hyaline Cast (Auto) (0-2) /LPF Urine Microscopic RBC (0-5) /HPF Urine Microscopic WBC (0-5) /HPF Ur Epithelial Cells (None Seen) /HPF Urine Bacteria (None Seen) /HPF Urine Culture Reflexed (NO) Monoscreen NEGATIVE (NEGATIVE) 12/25/24 12/25/24 Range/Units 11:24 11:19 WBC (3.98-10.04) x10^3/uL RBC (3.93-5.22) x10^6/uL Hgb (11.2-15.7) g/dL Hct (34.1-44.9) % MCV (79.4-94.8) fL MCH (25.6-32.2) pg MCHC (32.2-35.5) g/dL RDW (11.7-14.4) % Plt Count (182-369) x10^3/uL MPV (9.4-12.3) fL Gran % (34.0-71.1) % Immature Gran % (Auto) (0.001-0.429) % Nucleat RBC Rel Count (0.00-0.2) % Eos # (Auto) (0.04-0.36) x10^3/uL Immature Gran # (Auto) (0.001-0.031) x10^3u/L Absolute Lymphs (auto) (1.18-3.74) x10^3/uL Absolute Monos (auto) (0.24-0.86) x10^3/uL Absolute Nucleated RBC (0.00-0.012) x10^3u/L Lymphocytes % (19.3-51.7) % Monocytes % (4.7-12.5) % Eosinophils % (0.7-5.8) % Basophils % (0.1-1.2) % Absolute Granulocytes (1.56-6.13) x10^3/uL Basophils # (0.01-0.08) x10^3/uL Sodium (135-145) mmol/L Potassium (3.5-5.1) mmol/L Chloride (98-107) mmol/L Carbon Dioxide (22-30) mmol/L Anion Gap (5-15) MEQ/L BUN (7-17) mg/dL Creatinine (0.52-1.04) mg/dL Estimated GFR ML/MIN Glucose (74-106) mg/dL Lactic Acid 1.2 (0.4-2.0) Calcium (8.4-10.2) mg/dL Magnesium (1.6-2.3) mg/dL Total Bilirubin (0.2-1.3) mg/dL AST (14-36) U/L ALT (0-35) U/L Alkaline Phosphatase (38-126) U/L Serum Total Protein (6.3-8.2) g/dL Albumin (3.5-5.0) g/dL Amylase (30-110) U/L Lipase (23-300) U/L Urine Color Dark Yellow A (Yellow) Urine Appearance Cloudy A (Clear) Urine pH 5.0 (4.6-8.0) Ur Specific Temple 1.025 (1.005-1.030) Urine Protein Trace A (Negative) Urine Glucose (UA) Negative (Negative) mg/dL Urine Ketones Trace A (Negative) Urine Blood Negative (Negative) Urine Nitrite Negative (Negative) Urine Bilirubin Negative (Negative) Urine Urobilinogen 0.2 (0.2) mg/dL Ur Leukocyte Esterase Negative (Negative) U Hyaline Cast (Auto) NONE SEEN (0-2) /LPF Urine Microscopic RBC 0-2 (0-5) /HPF Urine Microscopic WBC 3-5 (0-5) /HPF Ur Epithelial Cells Rare (None Seen) /HPF Urine Bacteria None Seen (None Seen) /HPF Urine Culture Reflexed NO (NO) Monoscreen (NEGATIVE) - Progress Progress: improved Progress Note: 12/25/24 11:41 My medical decision making and the assignment of moderate complexity to this patient's medical issue today is based on review of the patient's past medical history, review the patient's medication list, reviewed patient drug allergy list, history present illness and physical findings on examination. The workup in this patient includes placement of a intravenous line, infusion of normal saline solution, CBC, CMP, magnesium level, monoscreen, CT scan of the abdomen pelvis without contrast. Differential diagnosis includes but is not limited to colitis, diverticulitis, viral illness, electrolyte abnormalities, dehydration 12/25/24 13:59 I interpreted the patient's laboratory data results. Based on the laboratory data results, the patient has mild dehydration and hypomagnesemia. CT scan of the abdomen pelvis was interpreted by the radiologist. The interpretation states colonic diarrhea. Sigmoid diverticulosis without diverticulitis. No free air and no free fluid. There is normal appendix. There is a fatty left inguinal hernia present. There is no abdominal aortic aneurysm. Counseled pt/family regarding: lab results, diagnosis, rad results Medical Desision Making - Independent Historian Additional History obtained from: Spouse - Diagnostic Testing Diagnostic test were ordered, analyzed, and reviewed by me: Yes Radiological Interpretation: Reviewed by me, Teleradiologist Report - Risk of complications The pt has a mod risk of morbidity or mortality based on: Need for prescription drug management - Departure Departure Disposition: Home Clinical Impression: Diarrhea, Mild dehydration, Hypomagnesemia Condition: Stable Critical Care Time: No Referrals: ALEJANDRA ADAMES [Primary Care Provider] - Follow up/PCP as directed Additional Instructions: Drink plenty of clear liquids before advancing your diet. Avoid fatty greasy spicy foods. Call your primary care provider today, 12/25/2024, to make arranges for follow-up appointment to be seen in the next 3 to 5 days. Prescriptions: Ondansetron ODT 4 MG [Zofran Odt 4 mg] 4 mg PO Q6H PRN PRN #10 tablet PRN Reason: Vomiting Metronidazole 500 mg [Flagyl 500 MG] 500 mg PO TID #21 tablet
[2024-12-25 11:01] VITALS: RESP 20; TEMP 97.7
[2024-12-25 11:28] LABS: Absolute Neutrophil Ct (ANC) 7.52 x10^3/uL (1.56-6.13); BASOPHIL % 0.3 % (0.1-1.2); Basophil (Absolute #) 0.04 x10^3/uL (0.01-0.08); Eosinophil % 0.6 % (0.7-5.8); Eosinophil (Absolute #) 0.07 x10^3/uL (0.04-0.36); Hematocrit 40.4 % (34.1-44.9); Hemoglobin 13.8 g/dL (11.2-15.7); IMMATURE GRAN # 0.09 x10^3u/L (0.001-0.031); IMMATURE GRAN % 0.7 % (0.001-0.429); Lymphocyte (Absolute #) 4.02 x10^3/uL (1.18-3.74); Lymphocytes % 32.5 % (19.3-51.7); Mean Cell Volume 79.8 fL (79.4-94.8); Mean Corpuscular Hemoglobin 27.3 pg (25.6-32.2); Mean Corpuscular Hgb Concent. 34.2 g/dL (32.2-35.5); Mean Platelet Volume 9.4 fL (9.4-12.3); Monocyte (Absolute #) 0.63 x10^3/uL (0.24-0.86); Monocytes % 5.1 % (4.7-12.5); Neutrophil % 60.8 % (34.0-71.1); Platelet Count 373 x10^3/uL (182-369); Red Blood Count 5.06 x10^6/uL (3.93-5.22); Red Cell Distribution Width 13.1 % (11.7-14.4); White Blood Count 12.4 x10^3/uL (3.98-10.04)
[2024-12-25 11:34] LABS: Appearance Cloudy (Clear); Bacteria None Seen /HPF (None Seen); Bilirubin Negative (Negative); Blood Negative (Negative); Epithelial Cells Rare /HPF (None Seen); Glucose, Urine Negative (Negative); Hyaline Casts NONE SEEN /LPF (0-2); Ketones Trace (Negative); Leukocyte Esterase Negative (Negative); Nitrite Negative (Negative); Protein,Urine Dip Trace (Negative); RBC 0-2 /HPF (0-5); Specific Gravity 1.025 (1.005-1.030); Urobilinogen 0.2 mg/dL (0.2)
[2024-12-25 11:35] LABS: ALBUMIN 4.7 g/dL (3.5-5.0); ANION GAP 16.5 MEQ/L (5-15); BILIRUBIN,TOTAL 0.8 mg/dL (0.2-1.3); Calcium 9.5 mg/dL (8.4-10.2); Creatinine 1 0.97 mg/dL (0.52-1.04); EST GLOMERULAR FILTRATION RATE 60.2 ML/MIN; MAGNESIUM 1.5 mg/dL (1.6-2.3)
[2024-12-25] MEDS ORDERED: Sodium Chloride 0.9% 1000 ML 1,000 ML ONE (11:39)
[2024-12-25] MEDS: Sodium Chloride 0.9% 1000 ML 1,000 ML IV STA (11:43)
[2024-12-25 11:53] VITALS: BP 174/68; PULSE 68; O2SAT 97
[2024-12-25] MEDS ORDERED: Magnesium 1 Gm / 100 Ml D5W*** 100 ML IV ONE (12:37)
[2024-12-25] MEDS: Magnesium 1 Gm / 100 Ml D5W*** 100 ML IV ONE (12:44)
--- NOTE | 2024-12-25 13:12 | XRAY ---
Indication: Diarrhea 4 days. Multiple contiguous axial images obtained through the abdomen and pelvis without contrast. Comparison: None Lung bases demonstrate right lower lobe subsegmental atelectasis/scarring. Heart not enlarged. Noncontrasted stomach and bowel loops appear nonobstructed. Normal appendix. Mild diffuse colonic diarrhea. Minimal sigmoid diverticulosis without diverticulitis. Previous hysterectomy. No free fluid/air. Remaining liver, gallbladder, pancreas, spleen, adrenal glands, kidneys, ureters, and bladder are unremarkable for noncontrast exam. Moderate scattered aortoiliac calcifications without AAA. Osseous structures intact with osteopenia, minimal/mild multilevel thoracolumbar degenerative spondylosis, and 2 mm anterolisthesis L4 on L5. Small fatty left inguinal hernia. Impression: Colonic diarrhea, sigmoid diverticulosis, arteriosclerotic disease, fatty left inguinal hernia, and chronic bony findings. Remaining CT abdomen/pelvis without contrast exam is negative.
[2024-12-25] MEDS ORDERED: Lactated Ringers 1,000 ML IV ONE (13:28)
[2024-12-25] MEDS: Lactated Ringers 1,000 ML IV ONE (13:29)
[2024-12-25] MEDS ORDERED: Flagyl 500 MG ONE (14:10)
[2024-12-25] MEDS: Flagyl 500 MG PO ONE (14:12)
== END 2024-12-25 14:23 | disposition home or self-care (01) ==
LOC: ED 10:43
DX: R19.7 Diarrhea, unspecified (principal); E86.0 Dehydration; E83.42 Hypomagnesemia; R53.1 Weakness; I10 Essential (primary) hypertension; Z79.899 Other long term (current) drug therapy
CPT/HCPCS: 36415; 74176; 80053; 81001; 82150; 83605; 83690; 83735; 85025; 86308; 87040; 96361; 96365; 96374; 99284; J3475; A9270-GY